=== PATIENT | female | born 1935 | race Caucasian/White ===

== ENCOUNTER 2017-01-08 17:23 | Inpatient (IN) | payer MEDICARE, OTHER ==
[2017-01-08] MEDS ORDERED: Ondansetron HCl/PF 4 MG/2 ML Vial IVP PRN (18:12)
[2017-01-08] MEDS ORDERED: Ondansetron ODT 4 MG TAB PO PRN (18:12)
[2017-01-08] MEDS ORDERED: Bisacodyl 5 MG TAB PO PRN (18:12)
[2017-01-08] MEDS ORDERED: Albuterol Sulfate 2.5 mg/3 ml Neb NEB PRN (18:22)
[2017-01-08] MEDS ORDERED: Digoxin 0.5 MG/2 ML AMP ONE (18:46)
[2017-01-08] MEDS: Sodium Chloride 0.9% 1,000 ML IV SCH (20:00)
[2017-01-08] MEDS ORDERED: Sodium Chloride 0.9% 500 ML IVPB SCH (20:00)
[2017-01-08] MEDS: Docusate 100 MG CAP PO SCH (21:05)
[2017-01-08] MEDS ORDERED: diphenhydrAMINE 25 MG CAP PO SCH (22:00)
[2017-01-08] MEDS ORDERED: Famotidine/PF 20 mg/2ml Vial SLOW IVP SCH (22:00)
--- NOTE | 2017-01-08 23:17 | HP ---
PRIMARY CARE PHYSICIAN: Dr. Escalera in [place]. PRIMARY SUPERVISOR PHOTOCOMPOSITION: Dr. Brian Blanchard. CHIEF COMPLAINT: Cavitary lung lesion with pneumonia. HISTORY OF PRESENT ILLNESS: This is a 81-year-old white female with a known history of COPD/emphysem a, who was admitted to [facility] on 01/05/2017 with left upper lobe pneumonia seen on chest x-ray. The patient reports that she has had COPD problems on and off that she had a problem about a week ago, but it improved. Patient had return of symptoms of coughing, and shortness of breath and w heezing about 7 days ago. Then she developed some fevers. Her fever got up to 100.9 with recurrence of fever. She eventually went to the hospital in [place] 3 days ago, patient was found to be febr ile with elevated white blood cell count of 19,000 and left upper lobe infiltrate, she was put on Alex ephin, azithromycin. Patient continued to have fevers in the hospital with a temperature of 101 arturo ier today, her white blood cell count did trend down from 19,000 on admission to 15,000 earlier today . She also had some hyponatremia 129, which was up to 136 today. Creatinine has been normal. No ot her significant abnormality. She did have a sputum culture and blood cultures drawn and sent over he re. Her sputum culture is growing back Pseudomonas since these are not back yet and her blood cultur es so far are negative. The patient had an episode where she was eating some pudding and had a cough ing fit and vomiting up and she felt very bad after that. She was evaluated at [place] and was fel t that she was possibly getting worse. The patient also had a CT scan done at [place], which show ed a cavitary lesion with fluid in the left upper lung, was concerned for an abscess versus possibly recurrent TB. She does have a history of nodule in the left upper lung lobe site. 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 Blanchard, who has seen her before in the room today. Patient reports feeling a bit better and now she has recovere d from her post-tussive emesis spell and just having some mild shortness of breath and then intermitt ent coughing fits. PAST MEDICAL HISTORY: 1. 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 2. Hypothyroidism. 3. Peripheral neuropathy. 4. Chronic back pain and sees Dr. Ilya Pritchett. 5. Gastroesophageal reflux disease on daily proton pump inhibitor. 6. Glaucoma. 7. Peripheral vascular disease. PAST SURGICAL HISTORY: 1. Tonsillectomy. 2. Bilateral cataract removal. 3. Hysterectomy. 4. Partial colectomy due to obstruction in 2008. 5. Esophageal dilation. 6. Colonoscopy in 2013 with polyps. 7. Back surgery in 2013. FAMILY HISTORY: Her dad may have had lung cancer. The patient is not certain about this specific di sease in her family. SOCIAL HISTORY: Patient lives at home with her in [facility]. She is [id number] smoking h istory, stopped more than 10 years ago. No alcohol or illicit drug use. She has 5 sons, one is dece ased in his 50s. ALLERGIES: 1. SULFAMETHOXAZOLE. 2. CODEINE SULFATE both of these cause vomiting, no anaphylactoid reactions. HOME MEDICATIONS: List as reported by the [facility]: 1. Timolol 0.5% solution one drop into affected eye daily. 2. Diazepam 10 mg twice a day as needed for muscle spasms. 3. Polyethylene glycol 1 scoop twice a day. 4. Levothyroxine 150 mcg daily. 5. DuoNeb 3 times a day. 6. ProAir HFA 2 puffs every 6 hours as needed for dyspnea. 7. Nexium 40 mg daily. 8. Lyrica 75 mg daily. 9. Advair Diskus 250/50 one puff twice a day. REVIEW OF SYSTEMS: Constitutional: Positive for chills and fevers as per HPI. No weight changes. Eyes: No double vision or blurred vision. ENT: She has had some congestion in her sinuses and nose and some mild sore throat since she is dried out with the oxygen in the hospital. Respiratory: Pos itive for cough, increased sputum, but no blood, positive for dyspnea and wheezing. Cardiovascular: No chest pain, no palpitations, or racing heart. Gastrointestinal: No abdominal pain, no diarrhea, or constipation. She had some posttussive emesis. No other nausea or vomiting. Genitourinary: No dysuria or hematuria. Musculoskeletal: No muscle aches or joint pains, except for her chronic low back pain. Skin: No rashes or other lesions that she has noticed. Neurologic: No focal weakness, no tingling. She does have some chronic numbness in her left foot, though she is able to feel things okay with that and chronically cold in her foot. She does bilateral foot burning, which she does no t take her Lyrica. PHYSICAL EXAMINATION: VITAL SIGNS: Blood pressure is just dropped to 83/55 when she fell asleep after my exam before that, recheck is 96/47, pulse 107, respirations 15, O2 sat 97% on nasal cannula oxygen. GENERAL: This is a well-developed, thin elderly white female in no acute distress. HEENT: Pupils are equal, round, and reactive to light. Oropharynx clear without lesions, erythema o r exudate. NECK: Supple, no lymphadenopathy, no thyroid nodules or enlargement, no JVD. HEART: Regular rhythm. She is a little bit tachycardic, no murmurs. LUNGS: She has decreased breath sounds throughout consistent with emphysema. However, she does have some mild dry sounding crackles in her right upper lobe. No increased work of breathing currently. No wheezing. ABDOMEN: Soft, nontender to palpation, normoactive bowel sounds, no hepatosplenomegaly or other mass es. EXTREMITIES: No clubbing, cyanosis, or edema. She does have fairly cold feet, but with good pulses and intact sensation. SKIN: No lesions. No rashes or other lesions noted. NEUROLOGIC: Cranial nerves intact and equal bilaterally. No facial droop. Strength 5/5 in all 4 ex tremities. PSYCHIATRIC: Alert and oriented x3, normal mood and affect. LABORATORY DATA: Today sodium 136, potassium 3.7, chloride 98, bicarbonate 32, BUN 14, creatinine 0. 6, glucose 101. Lactic acid was 1.7. White blood cell count 15,000, hemoglobin 11.5 down from 13 on admission, hematocrit 34.5, platelet count 277, neutrophils 87%. ASSESSMENT: 1. Community-acquired pneumonia now growing pseudomonas, possibly aspiration in origin. We will exp and patient's antibiotic coverage. She had a dose of Zosyn before transfer per Dr. Blanchard's request . We will continue Zosyn 4.5 mg q.6 hours IV and Levaquin as well 750 mg IV daily. Patient is curre ntly on respiratory isolation. We will try and get a sputum for acid-fast bacilli. Dr. Blanchard will be consulted in the morning. 2. Leukocytosis, improving, given continued fever, we will expand antibiotic. 3. COPD/emphysema. We will give nebs q.6 hours and then albuterol nebs every q.4 hours p.r.n. 4. Gastrointestinal prophylaxis with patient's GERD. We will put her Protonix 40 mg daily. 5. Deep venous thrombosis prophylaxis. We will put the patient on sequential compression devices an d ALEYDA along with Lovenox. 6. Anemia, likely dilutional with IV fluids in the hospital. We will recheck in the morning and isabella e sure it is not dropping any further. She may need a stool guaiacs and investigation resource. 7. Hypothyroidism. Resume home medication. 8. Code status. I did discuss with the patient. She is FULL CODE. She should be incapacitated. S he states that her would be her medical decision maker. His name is Peter Judge.
[2017-01-08] MEDS: Piperacillin/Tazobactam 4.5 GM in Sodium Chloride 0.9% 100 ML IVPB SCH (23:40)
[2017-01-09] MEDS: Acetaminophen 325 MG TAB PO PRN ×3 (00:15→16:40)
[2017-01-09] MEDS: Sodium Chloride 0.9% 1,000 ML IV SCH (00:24)
[2017-01-09 04:49] LABS: Anion Gap 12 mmol/L (10-20); BUN (Urea Nitrogen) 9 mg/dL (9.8-20.1); Calc. Creatinine Clearance 53 mL/min (70-130); Calcium 8.3 mg/dL (7.8-10.44); Carbon Dioxide 25 mmol/L (23-31); Chloride 100 mmol/L (98-107); Estimated GFR-MDRD Greater than 90
[2017-01-09] MEDS: Cyclobenzaprine 10 MG TAB PO PRN (05:40)
[2017-01-09] MEDS: Piperacillin/Tazobactam 4.5 GM in Sodium Chloride 0.9% 100 ML IVPB SCH ×4 (05:55→23:40)
[2017-01-09 06:06] LABS: Band 19 % (5-11); Mean Platelet Volume 7.2 fL (7.4-10.4); Metamyelocyte 3 % (0-0); Neutrophil 72 % (42-75); Red Blood Cell (RBC) Count 3.78 mill/uL (4.20-5.40); White Blood Cell (WBC) Count 21.3 thou/uL (4.8-10.8)
[2017-01-09] MEDS: Docusate 100 MG CAP PO SCH ×2 (09:00→20:39)
[2017-01-09] MEDS: Enoxaparin Sodium 40 MG/0.4 ML SYRINGE SC SCH (09:03)
[2017-01-09] MEDS ORDERED: Azithromycin 250 MG TAB PO SCH (11:00)
[2017-01-09] MEDS ORDERED: Pregabalin 75 MG CAP PO SCH (11:30)
--- NOTE | 2017-01-09 12:44 | PDOC.PN ---
- Subjective Encounter Start Date: 01/09/17 Encounter Start Time: 12:30 Subjective: Patient with some back spasm, now improved with home meds. -: Cough and SOB stable. No fever here. - Objective Resuscitation Status: Resuscitation Status FULL:Full Resuscitation MAR Reviewed: Yes Vital Signs & Weight: Vital Signs (12 hours) Temp Pulse Resp Pulse Ox 01/09/17 08:00 96.4 F L 105 H 23 H 95 01/09/17 07:58 100 01/09/17 07:55 106 H 24 H 100 01/09/17 04:00 97.8 F Weight Admit Weight 98 lb 8.746 oz Weight 97 lb 3.582 oz Most Recent Monitor Data Heart Rate from ECG 106 NIBP 152/83 NIBP BP-Mean 111 Respiration from ECG 21 SpO2 98 I&O: 01/08/17 01/09/17 01/10/17 06:59 06:59 06:59 Intake Total 2420 Output Total 2175 630 Balance 245 -630 Result Diagrams: 01/09/17 04:17 01/09/17 04:18 Phys Exam - Physical Examination Constitutional: NAD HEENT: moist MMs bilateral dry crackles and some mild wheezing Cardiovascular: RRR, no significant murmur Gastrointestinal: soft, positive bowel sounds Musculoskeletal: no edema Neurological: non-focal, moves all 4 limbs Psychiatric: normal affect, A&O x 3 Dx/Plan (1) Pneumonia with cavity of lung Code(s): J18.9 - PNEUMONIA, UNSPECIFIED ORGANISM; J98.4 - OTHER DISORDERS OF LUNG Status: Acute Comment: Pneumonia with Bullitis, Sptutum culture from with pansensitive Pseudomonas (2) COPD exacerbation Code(s): J44.1 - CHRONIC OBSTRUCTIVE PULMONARY DISEASE W (ACUTE) EXACERBATION Status: Acute (3) Hypothyroidism Code(s): E03.9 - HYPOTHYROIDISM, UNSPECIFIED Status: Chronic (4) Anemia Code(s): D64.9 - ANEMIA, UNSPECIFIED Status: Chronic - Plan cont current plan of care, continue antibiotics will need food and nutrition teacher abx and 6 week f/u with Dr. Blanchard after D/C. * . - Discharge Day Encounter end time: 12:55
--- NOTE | 2017-01-09 13:06 | CON ---
DATE OF CONSULTATION: 01/09/2017 SERVICE: Pulmonary Medicine. HISTORY OF PRESENT ILLNESS: The patient is a 81-year-old white female with past medical history sign ificant for a 7-day history of increasing difficulty breathing, cough, sputum production and fever. She presented to the Emergency Department in [place]. A chest x-ray showed a left upper lobe infil trate. CT scan was concerning for cavitary lesion. That being said, she has known horrendous emphys ematous lung changes. This is worse in the apical region. It is more likely that she just simply psoey s bullitis. It is unlikely that she is having multifocal air fluid levels consistent with multiple c avities. We did have a CT of the chest that was done roughly a year ago. This demonstrated the severe emphyse matous changes. Either way, she was put in the hospital and appropriately treated with [facility] coverage. She does feel better since being here. She has generating significant amounts of sp utum. PAST MEDICAL HISTORY: 1. Chronic obstructive pulmonary disease, severe. 2. Chronic hypoxic respiratory failure. 3. Chronic back pain. 4. Peripheral neuropathy. 5. Hypothyroidism. 6. Gastroesophageal reflux disease. 7. Glaucoma. 8. Peripheral vascular disease. PAST SURGICAL HISTORY: 1. Bilateral cataract extraction. 2. Tonsillectomy. 3. Hysterectomy. 4. Partial colectomy secondary to obstruction in 2008. 5. Esophageal dilation. 6. Polypectomy of the colon in 2012. 7. Back surgery in 2012. 8. Multiple injections for back pains. FAMILY HISTORY: Noncontributory. SOCIAL HISTORY: She has an [id number] history of smoking, but quit over 10 years ago. She denies any alcohol or illicit drug use. She has no exposure to chemicals, dust, asbestos or tuberculosis. ALLERGIES: SULFAMETHOXAZOLE and CODEINE. MEDICATIONS: List for her inpatient medications were reviewed. Multiple updates were made at this t formerly [facility]. REVIEW OF SYSTEMS: General, head, ears, eyes, nose, throat, cardiovascular, respiratory, GI, , mus culoskeletal, neurologic and skin is negative except as mentioned in the HPI. PHYSICAL EXAMINATION: VITAL SIGNS: Currently afebrile. Pulse 108, blood pressure 151/77, respirations 27, saturation 100% on 2 liters nasal cannula. HEENT: Normocephalic and atraumatic. Sclerae are white, conjunctivae pink. Oral and nasal mucosa i s moist without lesions. LUNGS: Decreased air entry. There is a prolonged expiratory phase. Rhonchi are present. Expirator y wheezing is also present. I do not appreciate any crackles. HEART: Normal rate and regular. ABDOMEN: Soft, nontender and nondistended. Bowel sounds positive. MUSCULOSKELETAL: No cyanosis or clubbing. No pitting in the bilateral lower extremities. NEUROLOGIC: Grossly nonfocal. LABORATORY DATA: WBC 21.3, hemoglobin 11.9, platelets 275,000 and band count is 19%. Basic metaboli c profile is completely unremarkable. IMAGING DATA: CT of the chest from the outside hospital was reviewed. There is a dense infiltrate i n the left upper lobe. This is superimposed on bolus emphysema. Additionally, she has some posterio rly located infiltrate, which is layering in the left posterior base. ASSESSMENT: 1. Chronic obstructive pulmonary disease with acute exacerbation. 2. Acute on chronic hypoxic respiratory failure. 3. Community-acquired pneumonia, severe. 4. Bullitis. DISCUSSION AND PLAN: There is no cavitary lesion here. If there was, it would be a unilateral multi focal cavitary disease. She has got multiple air fluid levels, but this is likely an overt consolida tion superimposed on top of bullous emphysema. This is essentially bullitis. It does need to be shayy ated with a protracted course of antibiotics. There is certainly no indication for biopsy or broncho scopy at this time. She has been placed on respiratory isolation. An acid-fast bacilli is currently cooking. If one sample is normal, I will discontinue the respiratory isolation. I will add atypica l coverage. Steroids will be deescalated to p.o. medication and limited to a 7-day course. Pulmonar y Critical Care will continue to follow, but from my perspective, she is stable for transition to the medical unit.
[2017-01-09] MEDS: guaiFENesin ER 600 MG TAB PO SCH (20:39)
[2017-01-09] MEDS: Pregabalin 75 MG CAP PO SCH (20:40)
[2017-01-10] MEDS: Acetaminophen 325 MG TAB PO PRN ×4 (02:50→21:17)
[2017-01-10] MEDS: Cyclobenzaprine 10 MG TAB PO PRN ×2 (02:51→15:33)
[2017-01-10 05:19] LABS: Band 7 % (5-11); Mean Platelet Volume 6.7 fL (7.4-10.4); Neutrophil 86 % (42-75); Red Blood Cell (RBC) Count 3.35 mill/uL (4.20-5.40); White Blood Cell (WBC) Count 21.5 thou/uL (4.8-10.8)
[2017-01-10] MEDS: Levothyroxine Sodium 150 MCG TAB PO SCH (05:28)
[2017-01-10] MEDS: Piperacillin/Tazobactam 4.5 GM in Sodium Chloride 0.9% 100 ML IVPB SCH ×3 (05:28→17:12)
[2017-01-10] MEDS: Docusate 100 MG CAP PO SCH ×2 (07:55→20:16)
[2017-01-10] MEDS: Pregabalin 75 MG CAP PO SCH ×2 (07:55→20:16)
[2017-01-10] MEDS: guaiFENesin ER 600 MG TAB PO SCH ×2 (07:55→20:16)
[2017-01-10] MEDS: predniSONE 20 MG TAB PO SCH (07:56)
[2017-01-10] MEDS: Enoxaparin Sodium 40 MG/0.4 ML SYRINGE SC SCH (07:56)
[2017-01-10] MEDS ORDERED: Azithromycin 250 MG TAB PO SCH (09:00)
[2017-01-10] MEDS: Timolol 0.5% Ophth Soln 5 ml Bottle EA EYE SCH (09:50)
[2017-01-10] MEDS ORDERED: Heparin 1,000 UNITS/ML VIAL ONE (10:00)
--- NOTE | 2017-01-10 13:03 | PDOC.PN ---
- Subjective Encounter Start Date: 01/10/17 Encounter Start Time: 11:25 Patient seen and examined. No new complaints. No overnight events - Objective Resuscitation Status: Resuscitation Status FULL:Full Resuscitation MAR Reviewed: Yes Vital Signs & Weight: Vital Signs (12 hours) Temp Pulse Resp BP Pulse Ox 01/10/17 13:00 106 H 01/10/17 11:33 97.6 F 78 18 146/79 H 01/10/17 09:50 96 01/10/17 08:00 97.9 F 96 18 01/10/17 07:27 97.9 F 96 18 145/82 H 100 01/10/17 07:23 100 18 01/10/17 04:00 97.5 F L 94 20 142/75 H 97 01/10/17 02:42 98 01/10/17 01:13 99 18 95 Weight Admit Weight 98 lb 8.746 oz Weight 97 lb 3.582 oz Most Recent Monitor Data Heart Rate from ECG 96 NIBP 149/81 NIBP BP-Mean 110 Respiration from ECG 24 SpO2 100 I&O: 01/09/17 01/10/17 01/11/17 06:59 06:59 06:59 Intake Total 2420 860 Output Total 2175 1800 Balance 245 -940 Result Diagrams: 01/10/17 04:29 01/09/17 04:18 Radiology Reviewed by me: Yes Phys Exam - Physical Examination Constitutional: NAD HEENT: PERRLA, moist MMs, sclera anicteric Neck: no JVD, supple Respiratory: no wheezing, no rales, no rhonchi Cardiovascular: RRR, no significant murmur, no rub Gastrointestinal: soft, non-tender, no distention, positive bowel sounds Musculoskeletal: no edema, pulses present Neurological: non-focal, normal sensation Lymphatic: no nodes Psychiatric: normal affect, A&O x 3 Skin: no rash, normal turgor Dx/Plan (1) Acute on chronic respiratory failure with hypoxia Code(s): J96.21 - ACUTE AND CHRONIC RESPIRATORY FAILURE WITH HYPOXIA Status: Acute (2) COPD exacerbation Code(s): J44.1 - CHRONIC OBSTRUCTIVE PULMONARY DISEASE W (ACUTE) EXACERBATION Status: Acute (3) Community acquired bacterial pneumonia Code(s): J15.9 - UNSPECIFIED BACTERIAL PNEUMONIA Status: Acute (4) Sepsis with acute organ dysfunction Code(s): A41.9 - SEPSIS, UNSPECIFIED ORGANISM; R65.20 - SEVERE SEPSIS WITHOUT SEPTIC SHOCK Status: Acute (5) Anemia, normocytic normochromic Code(s): D64.9 - ANEMIA, UNSPECIFIED Status: Chronic (6) GERD (gastroesophageal reflux disease) Code(s): K21.9 - GASTRO-ESOPHAGEAL REFLUX DISEASE WITHOUT ESOPHAGITIS Status: Chronic (7) Glaucoma Code(s): H40.9 - UNSPECIFIED GLAUCOMA Status: Chronic (8) Hypothyroidism Code(s): E03.9 - HYPOTHYROIDISM, UNSPECIFIED Status: Chronic (9) PVD (peripheral vascular disease) Code(s): I73.9 - PERIPHERAL VASCULAR DISEASE, UNSPECIFIED Status: Chronic (10) Peripheral neuropathy Code(s): G62.9 - POLYNEUROPATHY, UNSPECIFIED Status: Chronic (11) Protein-calorie malnutrition, moderate Code(s): E44.0 - MODERATE PROTEIN-CALORIE MALNUTRITION Status: Chronic - Plan cont current plan of care, continue antibiotics, respiratory therapy * continue zosyn and azithromycin * will ask pulmonary to decide IV vs oral antibiotics on discharge and duration * continue current optimum medical therapy for copd * medication reviewed as below * symptomatic treatment * once sputum afb negative, will dc respiratory isolation. Review of Systems - Review of Systems Constitutional: Weakness, Malaise. negative: Fever, Chills, Sweats, Other Eyes: negative: Pain, Vision Change, Conjunctivae Inflammation, Eyelid Inflammation, Redness, Other ENT: negative: Ear Pain, Ear Discharge, Nose Pain, Nose Discharge, Nose Congestion, Mouth Pain, Mouth Swelling, Throat Pain, Throat Swelling, Other Respiratory: Cough, Shortness of Breath, SOB with Excertion. negative: Dry, Hemoptysis, Pleuritic Pain, Sputum, Wheezing Cardiovascular: negative: Chest Pain, Palpitations, Orthopnea, Paroxysmal Noc. Dyspnea, Edema, Light Headedness, Other Gastrointestinal: negative: Nausea, Vomiting, Abdominal Pain, Diarrhea, Constipation, Melena, Hematochezia, Other Genitourinary: negative: Dysuria, Frequency, Incontinence, Hematuria, Retention , Other Musculoskeletal: negative: Neck Pain, Shoulder Pain, Arm Pain, Back Pain, Hand Pain, Leg Pain, Foot Pain, Other Skin: negative: Rash, Lesions, Yury, Bruising, Other - Medications/Allergies Allergies/Adverse Reactions: Allergies Allergy/AdvReac Type Severity Reaction Status Date / Time Sulfa (Sulfonamide Allergy Severe Rash Verified 01/09/17 01:23 Antibiotics) codeine Allergy Verified 09/23/15 07:14 levofloxacin [From Levaquin] Allergy Verified 01/08/17 23:42 Medications: Current Medications Acetaminophen (Tylenol) 650 mg PO Q4H PRN PRN Reason: Headache/Fever or Pain Last Admin: 01/10/17 07:55 Dose: 650 mg Albuterol Sulfate (Ventolin) 2.5 mg NEB [id number] PRN PRN Reason: Wheezing Albuterol/Ipratropium (Duoneb) 3 ml NEB [id number] [facility] Last Admin: 01/10/17 13:00 Dose: 3 ml Azithromycin (Zithromax) 500 mg PO DAILY [facility] Stop: 01/15/17 09:01 Last Admin: 01/10/17 07:56 Dose: 500 mg Bisacodyl (Dulcolax) 10 mg PO DAILYPRN PRN PRN Reason: Constipation Cyclobenzaprine HCl (Flexeril) 5 mg PO Q8H PRN PRN Reason: Muscle Spasm Last Admin: 01/10/17 02:51 Dose: 5 mg Diazepam (Valium) 5 mg PO Q24H PRN PRN Reason: Anxiety Docusate Sodium (Colace) 100 mg PO BID [facility] Last Admin: 01/10/17 07:55 Dose: 100 mg Enoxaparin Sodium (Lovenox) 40 mg SC 0900 [facility] Last Admin: 01/10/17 07:56 Dose: 40 mg Guaifenesin (Mucinex) 1,200 mg PO Q12HR [facility] Last Admin: 01/10/17 07:55 Dose: 1,200 mg Piperacillin Sod/Tazobactam (Sod 4.5 gm/ Sodium Chloride) 100 mls @ 200 mls/hr IVPB Q6HR [facility] Last Admin: 01/10/17 11:03 Dose: 100 mls Sodium Chloride (Normal Saline 0.9%) 1,000 mls @ 0 mls/hr IV .Q0M [facility] PRN Reason: KVO Levothyroxine Sodium (Synthroid) 150 mcg PO 0600 [facility] Last Admin: 01/10/17 05:28 Dose: 150 mcg Ondansetron HCl (Zofran Odt) 4 mg PO Q6H PRN PRN Reason: Nausea/Vomiting Ondansetron HCl (Zofran) 4 mg IVP Q6H PRN PRN Reason: Nausea/Vomiting Pantoprazole Sodium (Protonix) 40 mg PO DAILY [facility] Last Admin: 01/10/17 07:56 Dose: 40 mg Prednisone (Prednisone) 40 mg PO QAM-WM [facility] Last Admin: 01/10/17 07:56 Dose: 40 mg Pregabalin (Lyrica) 75 mg PO BID [facility] Last Admin: 01/10/17 07:55 Dose: 75 mg Sodium Chloride (Flush - Normal Saline) 10 ml IVF Q12HR [facility] Last Admin: 01/10/17 08:03 Dose: 10 ml Sodium Chloride (Flush - Normal Saline) 10 ml IVF PRN PRN PRN Reason: Saline Flush Last Admin: 01/08/17 23:40 Dose: 10 ml Timolol Maleate (Timoptic 0.5% Oph Soln) 1 drop EA EYE DAILY [facility] Last Admin: 01/10/17 09:50 Dose: 1 drp
[2017-01-10 13:15] VITALS: BMI 16.7
--- NOTE | 2017-01-10 18:08 | PRG ---
DATE OF SERVICE: 01/10/2017 SERVICE: Pulmonary Medicine. INTERVAL HISTORY: The patient actually feels like she is breathing much better. She is starting to cough up some of the sputum. It is a thick and yellow sputum. She denies any current fevers or chil ls. She is having some little overnight night sweats. Otherwise, she is returning to her usual stat e of health. PHYSICAL EXAMINATION: VITAL SIGNS: Afebrile, pulse 78, blood pressure 146/79, respirations 18, saturation 97% on 2 liters nasal cannula. GENERAL: The patient is awake and alert, in no apparent distress. LUNGS: Decent air entry. Rhonchi on the right. There is prolonged expiratory phase. A little bit of expiratory wheezing is present, but there are no crackles clear. HEART: Normal rate, regular. ABDOMEN: Soft, nontender, nondistended, bowel sounds positive. MUSCULOSKELETAL: No cyanosis or clubbing. No pitting in the bilateral lower extremities. NEUROLOGIC: Grossly nonfocal. LABORATORY DATA: WBC 21.5, hemoglobin 10.6, platelets 336,000. Band count is dropping. Basic metab olic profile remains unremarkable. Sputum culture growing Pseudomonas aeruginosa. This is a pansens itive organism. AFB smear and culture are negative to date. ASSESSMENT: 1. Acute on chronic hypoxic respiratory failure, resolved, at baseline. 2. Chronic obstructive pulmonary disease with acute exacerbation. 3. Community-acquired pneumonia, severe. 4. Bullitis. DISCUSSION AND PLAN: The patient seems to be doing much better. If she makes a significant recovery in 24 hours and and her white count starts to drop off, she can be considered for transition out of the hospital on p.o. Levaquin. Unfortunately, this will need to be continued for a total duration o f at least 4 weeks. Repeat imaging in the outpatient setting in 4 weeks with preclinic chest x-ray. We will need to continue antibiotics until she radiographically clear as this is not symptom of pneu monia and likely represents multifocal bullitis. Steroids can be discontinued after 10 days. Freque nt nebulizer medications directed at her underlying COPD process will be continued. Pulmonary will c ontinue to follow while she remains in house, but my suspicion is she will be discharged in 1-2 days.
[2017-01-11] MEDS: Piperacillin/Tazobactam 4.5 GM in Sodium Chloride 0.9% 100 ML IVPB SCH ×5 (00:03→23:11)
[2017-01-11] MEDS: Cyclobenzaprine 10 MG TAB PO PRN ×3 (01:54→20:20)
[2017-01-11] MEDS: Acetaminophen 325 MG TAB PO PRN ×2 (01:55→06:03)
[2017-01-11 05:57] LABS: Band 12 % (5-11); Hematocrit 36.3 % (36.0-47.0); Mean Platelet Volume 7.2 fL (7.4-10.4); Myelocyte 1 % (0-0); Neutrophil 84 % (42-75); Red Blood Cell (RBC) Count 3.75 mill/uL (4.20-5.40); White Blood Cell (WBC) Count 23.6 thou/uL (4.8-10.8)
[2017-01-11] MEDS: Levothyroxine Sodium 150 MCG TAB PO SCH (06:03)
[2017-01-11] MEDS: guaiFENesin ER 600 MG TAB PO SCH ×2 (09:02→20:18)
[2017-01-11] MEDS: Diazepam 5 MG TAB PO PRN (09:02)
[2017-01-11] MEDS: Docusate 100 MG CAP PO SCH ×2 (09:03→20:17)
[2017-01-11] MEDS: predniSONE 20 MG TAB PO SCH (09:03)
[2017-01-11] MEDS: Pregabalin 75 MG CAP PO SCH ×2 (09:04→20:18)
[2017-01-11] MEDS: Enoxaparin Sodium 40 MG/0.4 ML SYRINGE SC SCH (09:05)
[2017-01-11] MEDS: Timolol 0.5% Ophth Soln 5 ml Bottle EA EYE SCH (09:05)
[2017-01-11] MEDS ORDERED: Loperamide HCl 2 MG CAP PO PRN (09:30)
[2017-01-11] MEDS ORDERED: Milk Of Magnesia 30 ML UDCUP PO PRN (09:30)
[2017-01-11] MEDS ORDERED: Diabetic Tussin 200 MG/10 ML UDCUP PO PRN (09:30)
[2017-01-11] MEDS ORDERED: Chloraseptic Spray 180 ml Bottle PO PRN (09:30)
[2017-01-11] MEDS ORDERED: Loratadine 10 MG TAB PO PRN (09:30)
[2017-01-11] MEDS ORDERED: Eucerin (Mineral Oil/Petrolatum,White) 30 gm Jar TOP PRN (09:30)
[2017-01-11] MEDS ORDERED: Temazepam 15 MG CAP PO PRN (09:30)
[2017-01-11] MEDS ORDERED: hydrALAZINE 20 MG/ML VIAL SLOW IVP PRN (09:30)
[2017-01-11] MEDS ORDERED: Artificial Tear Sol 15 ML BOT EA EYE PRN (09:30)
[2017-01-11] MEDS ORDERED: Sodium Chloride 0.65% Nasal 44 ML BOT EA NARE PRN (09:30)
[2017-01-11] MEDS ORDERED: Benzonatate 100 MG CAP PO PRN (09:30)
[2017-01-11] MEDS ORDERED: Mag-Al 1200 mg/1200 mg/30 ML UDCUP PO PRN (09:30)
[2017-01-11] MEDS: Sodium Chloride 0.9% 1,000 ML IV SCH (09:32)
--- NOTE | 2017-01-11 12:06 | PDOC.PN ---
- Subjective Encounter Start Date: 01/11/17 Encounter Start Time: 10:20 today she is not doing well, feels weak, has cough, no chest pain, no dyspnea - Objective Resuscitation Status: Resuscitation Status FULL:Full Resuscitation MAR Reviewed: Yes Vital Signs & Weight: Vital Signs (12 hours) Temp Pulse Resp BP BP Pulse Ox 01/11/17 09:05 105 H 149/62 H 01/11/17 08:00 97.7 F 105 H 24 H 149/63 H 97 01/11/17 07:12 93 18 93 L 01/11/17 01:40 96 16 96 Weight Admit Weight 98 lb 8 oz Weight 97 lb 3.568 oz Most Recent Monitor Data Heart Rate from ECG 96 NIBP 149/81 NIBP BP-Mean 110 Respiration from ECG 24 SpO2 100 I&O: 01/10/17 01/11/17 01/12/17 06:59 06:59 06:59 Intake Total 860 902 Output Total 1800 1800 Balance -940 -898 Result Diagrams: 01/11/17 04:43 01/09/17 04:18 Phys Exam - Physical Examination Constitutional: NAD HEENT: PERRLA, moist MMs, sclera anicteric Neck: no JVD, supple coarse sound Cardiovascular: RRR, no significant murmur, no rub Gastrointestinal: soft, non-tender, no distention, positive bowel sounds Musculoskeletal: no edema, pulses present Neurological: non-focal, normal sensation Lymphatic: no nodes Psychiatric: normal affect, A&O x 3 Skin: no rash, normal turgor Dx/Plan (1) Acute on chronic respiratory failure with hypoxia Code(s): J96.21 - ACUTE AND CHRONIC RESPIRATORY FAILURE WITH HYPOXIA Status: Acute (2) COPD exacerbation Code(s): J44.1 - CHRONIC OBSTRUCTIVE PULMONARY DISEASE W (ACUTE) EXACERBATION Status: Acute (3) Community acquired bacterial pneumonia Code(s): J15.9 - UNSPECIFIED BACTERIAL PNEUMONIA Status: Acute (4) Sepsis with acute organ dysfunction Code(s): A41.9 - SEPSIS, UNSPECIFIED ORGANISM; R65.20 - SEVERE SEPSIS WITHOUT SEPTIC SHOCK Status: Acute (5) Anemia, normocytic normochromic Code(s): D64.9 - ANEMIA, UNSPECIFIED Status: Chronic (6) GERD (gastroesophageal reflux disease) Code(s): K21.9 - GASTRO-ESOPHAGEAL REFLUX DISEASE WITHOUT ESOPHAGITIS Status: Chronic (7) Glaucoma Code(s): H40.9 - UNSPECIFIED GLAUCOMA Status: Chronic (8) Hypothyroidism Code(s): E03.9 - HYPOTHYROIDISM, UNSPECIFIED Status: Chronic (9) PVD (peripheral vascular disease) Code(s): I73.9 - PERIPHERAL VASCULAR DISEASE, UNSPECIFIED Status: Chronic (10) Peripheral neuropathy Code(s): G62.9 - POLYNEUROPATHY, UNSPECIFIED Status: Chronic (11) Protein-calorie malnutrition, moderate Code(s): E44.0 - MODERATE PROTEIN-CALORIE MALNUTRITION Status: Chronic - Plan cont current plan of care, continue antibiotics, respiratory therapy * continue zosyn and azithromycin * will follow culture * medication reviewed as below * symptomatic treatment * repeat labs tomorrow. Review of Systems - Review of Systems Constitutional: Weakness. negative: Fever, Chills, Sweats, Malaise, Other ENT: negative: Ear Pain, Ear Discharge, Nose Pain, Nose Discharge, Nose Congestion, Mouth Pain, Mouth Swelling, Throat Pain, Throat Swelling, Other Respiratory: Cough, Shortness of Breath. negative: Dry, Hemoptysis, SOB with Excertion, Pleuritic Pain, Sputum, Wheezing Cardiovascular: negative: Chest Pain, Palpitations, Orthopnea, Paroxysmal Noc. Dyspnea, Edema, Light Headedness, Other Gastrointestinal: negative: Nausea, Vomiting, Abdominal Pain, Diarrhea, Constipation, Melena, Hematochezia, Other Genitourinary: negative: Dysuria, Frequency, Incontinence, Hematuria, Retention , Other Musculoskeletal: negative: Neck Pain, Shoulder Pain, Arm Pain, Back Pain, Hand Pain, Leg Pain, Foot Pain, Other Skin: negative: Rash, Lesions, Yury, Bruising, Other - Medications/Allergies Allergies/Adverse Reactions: Allergies Allergy/AdvReac Type Severity Reaction Status Date / Time Sulfa (Sulfonamide Allergy Severe Rash Verified 01/09/17 01:23 Antibiotics) codeine Allergy Verified 09/23/15 07:14 levofloxacin [From Levaquin] Allergy Verified 01/08/17 23:42 Medications: Current Medications Acetaminophen (Tylenol) 650 mg PO Q4H PRN PRN Reason: Headache/Fever or Pain Last Admin: 01/11/17 06:03 Dose: 650 mg Al Hydroxide/Mg Hydroxide (Maalox) 15 ml PO Q4H PRN PRN Reason: Heartburn or Indigestion Albuterol Sulfate (Ventolin) 2.5 mg NEB [id number] PRN PRN Reason: Wheezing Albuterol/Ipratropium (Duoneb) 3 ml NEB [id number] [facility] Last Admin: 01/11/17 07:12 Dose: 3 ml Artificial Tears (Tears Renewed 15ml Bottle) 0 drop EA EYE PRN PRN PRN Reason: Dry Eyes Benzonatate (Tessalon) 100 mg PO Q4H PRN PRN Reason: Cough Bisacodyl (Dulcolax) 10 mg PO DAILYPRN PRN PRN Reason: Constipation Last Admin: 01/10/17 20:16 Dose: 10 mg Cyclobenzaprine HCl (Flexeril) 5 mg PO Q8H PRN PRN Reason: Muscle Spasm Last Admin: 01/11/17 09:04 Dose: 5 mg Diazepam (Valium) 5 mg PO Q24H PRN PRN Reason: Anxiety Last Admin: 01/11/17 09:02 Dose: 5 mg Docusate Sodium (Colace) 100 mg PO BID [facility] Last Admin: 01/11/17 09:03 Dose: 100 mg Enoxaparin Sodium (Lovenox) 30 mg SC 0900 [facility] Famotidine (Pepcid) 20 mg PO BID [facility] Guaifenesin (Mucinex) 1,200 mg PO Q12HR [facility] Last Admin: 01/11/17 09:02 Dose: 1,200 mg Guaifenesin (Robitussin Sf) 200 mg PO Q4H PRN PRN Reason: Cough Hydralazine HCl (Apresoline) 10 mg SLOW IVP Q4H PRN PRN Reason: Systolic BP > 180 Piperacillin Sod/Tazobactam (Sod 4.5 gm/ Sodium Chloride) 100 mls @ 200 mls/hr IVPB Q6HR [facility] Last Admin: 01/11/17 06:01 Dose: 100 mls Sodium Chloride (Normal Saline 0.9%) 1,000 mls @ 0 mls/hr IV .Q0M [facility] PRN Reason: KVO Last Admin: 01/11/17 09:32 Dose: 1,000 mls Levothyroxine Sodium (Synthroid) 150 mcg PO 0600 [facility] Last Admin: 01/11/17 06:03 Dose: 150 mcg Loperamide HCl (Imodium) 2 mg PO PRN PRN PRN Reason: Diarrhea/Loose Stools Loratadine (Claritin) 10 mg PO DAILYPRN PRN PRN Reason: Sinus Symptoms Magnesium Hydroxide (Milk Of Magnesium) 30 ml PO DAILYPRN PRN PRN Reason: Constipation Mineral Oil/White Petrolatum (Eucerin Cream) 0 gm TOP BIDPRN PRN PRN Reason: Dry Skin Ondansetron HCl (Zofran Odt) 4 mg PO Q6H PRN PRN Reason: Nausea/Vomiting Ondansetron HCl (Zofran) 4 mg IVP Q6H PRN PRN Reason: Nausea/Vomiting Pantoprazole Sodium (Protonix) 40 mg PO DAILY [facility] Last Admin: 01/11/17 09:04 Dose: 40 mg Phenol (Chloraseptic [place] 180 Ml Bot) 0 ml PO PRN PRN PRN Reason: Sore Throat Prednisone (Prednisone) 40 mg PO QA-[facility] Last Admin: 01/11/17 09:03 Dose: 40 mg Pregabalin (Lyrica) 75 mg PO BID [facility] Last Admin: 01/11/17 09:04 Dose: 75 mg Saccharomyces Boulardii (Florastor) 250 mg PO DAILY [facility] Sodium Chloride (Flush - Normal Saline) 10 ml IVF Q12HR [facility] Last Admin: 01/11/17 09:05 Dose: 10 ml Sodium Chloride (Flush - Normal Saline) 10 ml IVF PRN PRN PRN Reason: Saline Flush Last Admin: 01/08/17 23:40 Dose: 10 ml Sodium Chloride ([place] Nasal [place] 0.65%) 0 ml EA NARE QIDPRN PRN PRN Reason: Nasal Congestion Temazepam (Restoril) 15 mg PO HSPRN PRN PRN Reason: Insomnia Timolol Maleate (Timoptic 0.5% Oph Soln) 1 drop EA EYE DAILY [facility] Last Admin: 01/11/17 09:05 Dose: 1 drp
--- NOTE | 2017-01-11 14:29 | PRG ---
DATE OF SERVICE: 01/11/2017 SUBJECTIVE: Ms. Judge says she feels about the same as yesterday, it took about 10 minutes to get this history out of her. Her seems very frustrated that she is not getting better quicker. OBJECTIVE: VITAL SIGNS: She is afebrile, heart rate is 93 to 105, blood pressure 149/62. Oximetry is 97 on 3 liters. GENERAL: She gets quite short of breath she says when she ambulates to the bathroom. LUNGS: Remarkable for bilateral faint wheezes. HEART: Regular rhythm. ABDOMEN: Soft. LABORATORY DATA: White count 23.6, hemoglobin 11.7, platelets 386. She has 12 % bands on her peripheral smear. There were no electrolytes today. IMAGING: Chest radiograph was not done here, there is no imaging in the system here, so I will radiograph in the morning. By report, she has an upper lobe air fluid level in a cavity, it is the preexisting bullous airspace. IMPRESSION: 1. Pneumonia. 2. Chronic obstructive pulmonary disease. 3. Deconditioning. She has isolated Pseudomonas from her sputum. Sensitivities are pending. AFB smears are negative. She is on high dose Zosyn, she has got a QUINOLONE allergy, we will continue to follow her and order radiograph in the morning. I have explained to her that deconditioning is the biggest issue at hand and she has to try to be a little more active each day. I have also explained that she will not recover from this quickly. We will await for sensitivities of Pseudomonas. I do not feel that she is getting worse clinically. MAURIZIO
[2017-01-11] MEDS: Famotidine 20 MG TAB PO SCH (20:17)
[2017-01-12] MEDS: Acetaminophen 325 MG TAB PO PRN ×3 (00:19→18:14)
[2017-01-12] MEDS: Levothyroxine Sodium 150 MCG TAB PO SCH (05:36)
[2017-01-12] MEDS: Piperacillin/Tazobactam 4.5 GM in Sodium Chloride 0.9% 100 ML IVPB SCH ×2 (05:36→12:23)
[2017-01-12 05:59] LABS: ALT (SGPT) 15 U/L (8-55); AST (SGOT) 18 U/L (5-34); Alkaline Phosphatase 75 U/L (40-150); Anion Gap 6 mmol/L (10-20); BUN (Urea Nitrogen) 12 mg/dL (9.8-20.1); Bilirubin, Total 0.2 mg/dL (0.2-1.2); Calc. Creatinine Clearance 58 mL/min (70-130); Calcium 8.4 mg/dL (7.8-10.44); Carbon Dioxide 34 mmol/L (23-31); Chloride 98 mmol/L (98-107); Estimated GFR-MDRD Greater than 90; Globulin 2.5 g/dL (2.4-3.5); Protein, Total 4.9 g/dL (6.0-8.3)
[2017-01-12 06:13] LABS: Band 2 % (5-11); Hematocrit 36.3 % (36.0-47.0); Mean Platelet Volume 6.9 fL (7.4-10.4); Neutrophil 93 % (42-75); Red Blood Cell (RBC) Count 3.66 mill/uL (4.20-5.40); White Blood Cell (WBC) Count 15.8 thou/uL (4.8-10.8)
[2017-01-12] MEDS ORDERED: Potassium Chloride 20 MEQ TAB PO SCH (08:15)
[2017-01-12] MEDS: Docusate 100 MG CAP PO SCH ×2 (09:18→20:19)
[2017-01-12] MEDS: guaiFENesin ER 600 MG TAB PO SCH ×2 (09:18→20:18)
[2017-01-12] MEDS: Saccharomyces boulardii 250 MG CAP PO SCH (09:18)
[2017-01-12] MEDS: predniSONE 20 MG TAB PO SCH (09:18)
[2017-01-12] MEDS: Famotidine 20 MG TAB PO SCH ×2 (09:19→20:19)
[2017-01-12] MEDS: Enoxaparin Sodium 30 MG/0.3 ML SYRINGE SC SCH (09:19)
[2017-01-12] MEDS: Pregabalin 75 MG CAP PO SCH ×2 (09:19→20:19)
[2017-01-12] MEDS: Timolol 0.5% Ophth Soln 5 ml Bottle EA EYE SCH (09:20)
[2017-01-12] MEDS: Diazepam 5 MG TAB PO PRN (09:23)
--- NOTE | 2017-01-12 11:14 | RAD ---
CHEST 1 VIEW: Date: 01/12/17 HISTORY: 81-year-old female with respiratory insufficiency. COMPARISON: Chest CT scan without contrast dated 09/23/15. FINDINGS: Extensive hyperinflation and chronic emphysema changes noted bilaterally. New area of parenchymal den sity with some volume loss in the left upper lobe, as well as interstitial, linear, and reticulonodul ar parenchymal changes in both bases, which is also new when compared to the prior 2016 study. Possib ilities of bilateral pneumonia or atypical pneumonia of the changes in the left apex did not appear t o be a definite cavity, although if there is any clinical concern for the possibility of TB, addition al imaging or additional laboratory evaluation in this regards should be considered. IMPRESSION: Marked hyperinflation and chronic lung changes. Interval development of new patchy interstitial and l inear, reticulonodular, and alveolar opacity changes, particularly in the left upper lobe with some v olume loss, as well as in both right and left costophrenic angles and small right pleural effusions. Bilateral pneumonia and possibly atypical pneumonia are considerations. Continued short-term follow-u p. POS: MARVIN
--- NOTE | 2017-01-12 12:51 | PDOC.PN ---
- Subjective Encounter Start Date: 01/12/17 Encounter Start Time: 09:50 Patient seen and examined. No new complaints. No overnight events - Objective Resuscitation Status: Resuscitation Status FULL:Full Resuscitation MAR Reviewed: Yes Vital Signs & Weight: Vital Signs (12 hours) Temp Pulse Resp BP BP Pulse Ox 01/12/17 09:20 102 H 172/81 H 01/12/17 08:00 97.5 F L 102 H 16 99 01/12/17 07:29 97.5 F L 109 H 18 172/81 H 95 01/12/17 07:07 99 01/12/17 07:04 95 18 99 01/12/17 01:34 96 Weight Admit Weight 98 lb 8 oz Weight 97 lb 3.568 oz Most Recent Monitor Data Heart Rate from ECG 96 NIBP 149/81 NIBP BP-Mean 110 Respiration from ECG 24 SpO2 100 I&O: 01/11/17 01/12/17 01/13/17 06:59 06:59 06:59 Intake Total 902 920 Output Total 1800 2320 Balance -898 -1400 Result Diagrams: 01/12/17 05:06 01/12/17 05:06 Phys Exam - Physical Examination Constitutional: NAD HEENT: PERRLA, moist MMs, sclera anicteric Neck: no JVD, supple Respiratory: no wheezing, no rales, no rhonchi coarse sound Cardiovascular: RRR, no significant murmur, no rub Gastrointestinal: soft, non-tender, no distention, positive bowel sounds Musculoskeletal: no edema, pulses present Neurological: non-focal, normal sensation Lymphatic: no nodes Psychiatric: normal affect Skin: no rash, normal turgor Dx/Plan (1) Acute on chronic respiratory failure with hypoxia Code(s): J96.21 - ACUTE AND CHRONIC RESPIRATORY FAILURE WITH HYPOXIA Status: Acute (2) COPD exacerbation Code(s): J44.1 - CHRONIC OBSTRUCTIVE PULMONARY DISEASE W (ACUTE) EXACERBATION Status: Acute (3) Community acquired bacterial pneumonia Code(s): J15.9 - UNSPECIFIED BACTERIAL PNEUMONIA Status: Acute (4) Sepsis with acute organ dysfunction Code(s): A41.9 - SEPSIS, UNSPECIFIED ORGANISM; R65.20 - SEVERE SEPSIS WITHOUT SEPTIC SHOCK Status: Acute (5) Anemia, normocytic normochromic Code(s): D64.9 - ANEMIA, UNSPECIFIED Status: Chronic (6) GERD (gastroesophageal reflux disease) Code(s): K21.9 - GASTRO-ESOPHAGEAL REFLUX DISEASE WITHOUT ESOPHAGITIS Status: Chronic (7) Glaucoma Code(s): H40.9 - UNSPECIFIED GLAUCOMA Status: Chronic (8) Hypothyroidism Code(s): E03.9 - HYPOTHYROIDISM, UNSPECIFIED Status: Chronic (9) PVD (peripheral vascular disease) Code(s): I73.9 - PERIPHERAL VASCULAR DISEASE, UNSPECIFIED Status: Chronic (10) Peripheral neuropathy Code(s): G62.9 - POLYNEUROPATHY, UNSPECIFIED Status: Chronic (11) Protein-calorie malnutrition, moderate Code(s): E44.0 - MODERATE PROTEIN-CALORIE MALNUTRITION Status: Chronic - Plan cont current plan of care, continue antibiotics, PT/OT, medical social worker * continue zosyn and azithromycin * medication reviewed as below * symptomatic treatment. * on discharge will consider omnicef * repeat labs tomorrow Review of Systems - Review of Systems Constitutional: Weakness. negative: Fever, Chills, Sweats, Malaise, Other ENT: negative: Ear Pain, Ear Discharge, Nose Pain, Nose Discharge, Nose Congestion, Mouth Pain, Mouth Swelling, Throat Pain, Throat Swelling, Other Respiratory: Cough, Shortness of Breath. negative: Dry, Hemoptysis, SOB with Excertion, Pleuritic Pain, Sputum, Wheezing Cardiovascular: negative: Chest Pain, Palpitations, Orthopnea, Paroxysmal Noc. Dyspnea, Edema, Light Headedness, Other Gastrointestinal: negative: Nausea, Vomiting, Abdominal Pain, Diarrhea, Constipation, Melena, Hematochezia, Other Genitourinary: negative: Dysuria, Frequency, Incontinence, Hematuria, Retention , Other Musculoskeletal: negative: Neck Pain, Shoulder Pain, Arm Pain, Back Pain, Hand Pain, Leg Pain, Foot Pain, Other Skin: negative: Rash, Lesions, Yury, Bruising, Other - Medications/Allergies Allergies/Adverse Reactions: Allergies Allergy/AdvReac Type Severity Reaction Status Date / Time Sulfa (Sulfonamide Allergy Severe Rash Verified 01/09/17 01:23 Antibiotics) codeine Allergy Verified 09/23/15 07:14 levofloxacin [From Levaquin] Allergy Verified 01/08/17 23:42 Medications: Current Medications Acetaminophen (Tylenol) 650 mg PO Q4H PRN PRN Reason: Headache/Fever or Pain Last Admin: 01/12/17 05:40 Dose: 650 mg Al Hydroxide/Mg Hydroxide (Maalox) 15 ml PO Q4H PRN PRN Reason: Heartburn or Indigestion Albuterol Sulfate (Ventolin) 2.5 mg NEB [id number] PRN PRN Reason: Wheezing Albuterol/Ipratropium (Duoneb) 3 ml NEB [id number] [facility] Last Admin: 01/12/17 07:04 Dose: 3 ml Artificial Tears (Tears Renewed 15ml Bottle) 0 drop EA EYE PRN PRN PRN Reason: Dry Eyes Benzonatate (Tessalon) 100 mg PO Q4H PRN PRN Reason: Cough Bisacodyl (Dulcolax) 10 mg PO DAILYPRN PRN PRN Reason: Constipation Last Admin: 01/10/17 20:16 Dose: 10 mg Cyclobenzaprine HCl (Flexeril) 5 mg PO Q8H PRN PRN Reason: Muscle Spasm Last Admin: 01/11/17 20:20 Dose: 5 mg Diazepam (Valium) 5 mg PO Q24H PRN PRN Reason: Anxiety Last Admin: 01/12/17 09:23 Dose: 5 mg Docusate Sodium (Colace) 100 mg PO BID [facility] Last Admin: 01/12/17 09:18 Dose: 100 mg Enoxaparin Sodium (Lovenox) 30 mg SC 0900 [facility] Last Admin: 01/12/17 09:19 Dose: 30 mg Famotidine (Pepcid) 20 mg PO BID [facility] Last Admin: 01/12/17 09:19 Dose: 20 mg Guaifenesin (Mucinex) 1,200 mg PO Q12HR [facility] Last Admin: 01/12/17 09:18 Dose: 1,200 mg Guaifenesin (Robitussin Sf) 200 mg PO Q4H PRN PRN Reason: Cough Hydralazine HCl (Apresoline) 10 mg SLOW IVP Q4H PRN PRN Reason: Systolic BP > 180 Piperacillin Sod/Tazobactam (Sod 4.5 gm/ Sodium Chloride) 100 mls @ 200 mls/hr IVPB Q6HR [facility] Last Admin: 01/12/17 12:23 Dose: 100 mls Sodium Chloride (Normal Saline 0.9%) 1,000 mls @ 0 mls/hr IV .Q0M [facility] PRN Reason: KVO Last Admin: 01/11/17 09:32 Dose: 1,000 mls Levothyroxine Sodium (Synthroid) 150 mcg PO 0600 [facility] Last Admin: 01/12/17 05:36 Dose: 150 mcg Loperamide HCl (Imodium) 2 mg PO PRN PRN PRN Reason: Diarrhea/Loose Stools Loratadine (Claritin) 10 mg PO DAILYPRN PRN PRN Reason: Sinus Symptoms Magnesium Hydroxide (Milk Of Magnesium) 30 ml PO DAILYPRN PRN PRN Reason: Constipation Mineral Oil/White Petrolatum (Eucerin Cream) 0 gm TOP BIDPRN PRN PRN Reason: Dry Skin Ondansetron HCl (Zofran Odt) 4 mg PO Q6H PRN PRN Reason: Nausea/Vomiting Ondansetron HCl (Zofran) 4 mg IVP Q6H PRN PRN Reason: Nausea/Vomiting Pantoprazole Sodium (Protonix) 40 mg PO DAILY [facility] Last Admin: 01/12/17 09:19 Dose: 40 mg Phenol (Chloraseptic [place] 180 Ml Bot) 0 ml PO PRN PRN PRN Reason: Sore Throat Prednisone (Prednisone) 40 mg PO QAM-WM [facility] Last Admin: 01/12/17 09:18 Dose: 40 mg Pregabalin (Lyrica) 75 mg PO BID [facility] Last Admin: 01/12/17 09:19 Dose: 75 mg Saccharomyces Boulardii (Florastor) 250 mg PO DAILY [facility] Last Admin: 01/12/17 09:18 Dose: 250 mg Sodium Chloride (Flush - Normal Saline) 10 ml IVF Q12HR [facility] Last Admin: 01/12/17 09:20 Dose: 10 ml Sodium Chloride (Flush - Normal Saline) 10 ml IVF PRN PRN PRN Reason: Saline Flush Last Admin: 01/08/17 23:40 Dose: 10 ml Sodium Chloride ([place] Nasal [place] 0.65%) 0 ml EA NARE QIDPRN PRN PRN Reason: Nasal Congestion Temazepam (Restoril) 15 mg PO HSPRN PRN PRN Reason: Insomnia Timolol Maleate (Timoptic 0.5% Oph Soln) 1 drop EA EYE DAILY [facility] Last Admin: 01/12/17 09:20 Dose: 1 drp
--- NOTE | 2017-01-12 13:31 | PRG ---
DATE OF SERVICE: 01/12/2017 The patient says she still feels poorly. PHYSICAL EXAMINATION: VITAL SIGNS: Temperature 97.5, pulse 102, blood pressure 172/81, 99% on 3 liters. HEENT: Unremarkable. NECK: No JVD. CHEST: Fairly clear. CARDIAC: S1 and S2 regular. ABDOMEN: Soft. EXTREMITIES: No edema. The Pseudomonas was intermediately resistant to Zosyn, but is susceptible to cefepime. LABORATORY DATA: White blood cell count 15.9, hemoglobin 11.5, hematocrit 36.3, platelet count 428. Sodium 135, potassium 3.2, chloride 98, CO2 34, BUN 12, creatinine 2.5, glucose 129. ASSESSMENT: 1. Pseudomonal pneumonia. 2. Deconditioning. 3. Chronic obstructive pulmonary disease. PLAN: Change the Zosyn to cefepime. I would anticipate her needing to be in the hospital for a lila thomas
[2017-01-12] MEDS: Cefepime 1 GM, Admixture Fee 1 EACH in Sterile Water 10 ML SLOW IVP SCH (14:18)
[2017-01-12] MEDS ORDERED: Cefepime 1 GM in Sodium Chloride 0.9% 100 ML IVPB SCH (21:00)
[2017-01-13] MEDS: Cefepime 1 GM, Admixture Fee 1 EACH in Sterile Water 10 ML SLOW IVP SCH ×2 (01:39→14:10)
[2017-01-13] MEDS: Levothyroxine Sodium 150 MCG TAB PO SCH (05:39)
[2017-01-13 06:39] LABS: Band 1 % (5-11); Hematocrit 40.5 % (36.0-47.0); Mean Platelet Volume 6.9 fL (7.4-10.4); Neutrophil 88 % (42-75); Red Blood Cell (RBC) Count 4.05 mill/uL (4.20-5.40); White Blood Cell (WBC) Count 16.1 thou/uL (4.8-10.8)
[2017-01-13] MEDS: Acetaminophen 325 MG TAB PO PRN (06:47)
[2017-01-13] MEDS: Enoxaparin Sodium 30 MG/0.3 ML SYRINGE SC SCH (07:48)
[2017-01-13] MEDS: Timolol 0.5% Ophth Soln 5 ml Bottle EA EYE SCH (07:49)
[2017-01-13] MEDS: Saccharomyces boulardii 250 MG CAP PO SCH (07:49)
[2017-01-13] MEDS: guaiFENesin ER 600 MG TAB PO SCH ×2 (07:49→19:58)
[2017-01-13] MEDS: predniSONE 20 MG TAB PO SCH (07:50)
[2017-01-13] MEDS: Pregabalin 75 MG CAP PO SCH ×2 (07:50→19:59)
[2017-01-13] MEDS: Famotidine 20 MG TAB PO SCH ×2 (07:50→19:59)
[2017-01-13] MEDS: Docusate 100 MG CAP PO SCH ×2 (07:51→19:59)
--- NOTE | 2017-01-13 11:42 | PDOC.PN ---
- Subjective Encounter Start Date: 01/13/17 Encounter Start Time: 08:00 pt is feeling cold, weak, not feeling good today. Patient seen and examined. No overnight even - Objective Resuscitation Status: Resuscitation Status FULL:Full Resuscitation MAR Reviewed: Yes Vital Signs & Weight: Vital Signs (12 hours) Temp Pulse Resp BP Pulse Ox 01/13/17 08:00 98.2 F 105 H 18 99 01/13/17 07:49 105 H 01/13/17 07:30 97.3 F L 105 H 20 164/70 H 96 01/13/17 05:39 97 01/12/17 23:49 97 Weight Admit Weight 98 lb 8 oz Weight 97 lb 3.568 oz Most Recent Monitor Data Heart Rate from ECG 96 NIBP 149/81 NIBP BP-Mean 110 Respiration from ECG 24 SpO2 100 I&O: 01/12/17 01/13/17 01/14/17 06:59 06:59 06:59 Intake Total 920 360 Output Total 2320 2850 Balance -1400 -2490 Result Diagrams: 01/13/17 05:49 01/12/17 05:06 Phys Exam - Physical Examination Constitutional: NAD HEENT: PERRLA, moist MMs, sclera anicteric Neck: no JVD, supple Respiratory: no wheezing, no rales, no rhonchi reduced air entry both side Cardiovascular: RRR, no significant murmur, no rub Gastrointestinal: soft, non-tender, no distention, positive bowel sounds Musculoskeletal: no edema, pulses present Neurological: non-focal, normal sensation Lymphatic: no nodes Psychiatric: normal affect, A&O x 3 Skin: no rash, normal turgor Dx/Plan (1) Acute on chronic respiratory failure with hypoxia Code(s): J96.21 - ACUTE AND CHRONIC RESPIRATORY FAILURE WITH HYPOXIA Status: Acute (2) COPD exacerbation Code(s): J44.1 - CHRONIC OBSTRUCTIVE PULMONARY DISEASE W (ACUTE) EXACERBATION Status: Acute (3) Community acquired bacterial pneumonia Code(s): J15.9 - UNSPECIFIED BACTERIAL PNEUMONIA Status: Acute (4) Sepsis with acute organ dysfunction Code(s): A41.9 - SEPSIS, UNSPECIFIED ORGANISM; R65.20 - SEVERE SEPSIS WITHOUT SEPTIC SHOCK Status: Acute (5) Anemia, normocytic normochromic Code(s): D64.9 - ANEMIA, UNSPECIFIED Status: Chronic (6) GERD (gastroesophageal reflux disease) Code(s): K21.9 - GASTRO-ESOPHAGEAL REFLUX DISEASE WITHOUT ESOPHAGITIS Status: Chronic (7) Glaucoma Code(s): H40.9 - UNSPECIFIED GLAUCOMA Status: Chronic (8) Hypothyroidism Code(s): E03.9 - HYPOTHYROIDISM, UNSPECIFIED Status: Chronic (9) PVD (peripheral vascular disease) Code(s): I73.9 - PERIPHERAL VASCULAR DISEASE, UNSPECIFIED Status: Chronic (10) Peripheral neuropathy Code(s): G62.9 - POLYNEUROPATHY, UNSPECIFIED Status: Chronic (11) Protein-calorie malnutrition, moderate Code(s): E44.0 - MODERATE PROTEIN-CALORIE MALNUTRITION Status: Chronic - Plan cont current plan of care, continue antibiotics * DC joel catheter * antibiotics changed zosyn to cefepime for pseudomonas coverage * medication reviewed as below * symptomatic treatment * will monitor in hospital . Review of Systems - Review of Systems Constitutional: Weakness. negative: Fever, Chills, Sweats, Malaise, Other ENT: negative: Ear Pain, Ear Discharge, Nose Pain, Nose Discharge, Nose Congestion, Mouth Pain, Mouth Swelling, Throat Pain, Throat Swelling, Other Respiratory: Cough, Shortness of Breath, SOB with Excertion. negative: Dry, Hemoptysis, Pleuritic Pain, Sputum, Wheezing Cardiovascular: negative: Chest Pain, Palpitations, Orthopnea, Paroxysmal Noc. Dyspnea, Edema, Light Headedness, Other Gastrointestinal: negative: Nausea, Vomiting, Abdominal Pain, Diarrhea, Constipation, Melena, Hematochezia, Other Genitourinary: negative: Dysuria, Frequency, Incontinence, Hematuria, Retention , Other Musculoskeletal: negative: Neck Pain, Shoulder Pain, Arm Pain, Back Pain, Hand Pain, Leg Pain, Foot Pain, Other - Medications/Allergies Allergies/Adverse Reactions: Allergies Allergy/AdvReac Type Severity Reaction Status Date / Time Sulfa (Sulfonamide Allergy Severe Rash Verified 01/09/17 01:23 Antibiotics) codeine Allergy Verified 09/23/15 07:14 levofloxacin [From Levaquin] Allergy Verified 01/08/17 23:42 Medications: Current Medications Acetaminophen (Tylenol) 650 mg PO Q4H PRN PRN Reason: Headache/Fever or Pain Last Admin: 01/13/17 06:47 Dose: 650 mg Al Hydroxide/Mg Hydroxide (Maalox) 15 ml PO Q4H PRN PRN Reason: Heartburn or Indigestion Albuterol Sulfate (Ventolin) 2.5 mg NEB [id number] PRN PRN Reason: Wheezing Albuterol/Ipratropium (Duoneb) 3 ml NEB [id number] [facility] Last Admin: 01/13/17 05:39 Dose: 3 ml Artificial Tears (Tears Renewed 15ml Bottle) 0 drop EA EYE PRN PRN PRN Reason: Dry Eyes Benzonatate (Tessalon) 100 mg PO Q4H PRN PRN Reason: Cough Bisacodyl (Dulcolax) 10 mg PO DAILYPRN PRN PRN Reason: Constipation Last Admin: 01/10/17 20:16 Dose: 10 mg Cyclobenzaprine HCl (Flexeril) 5 mg PO Q8H PRN PRN Reason: Muscle Spasm Last Admin: 01/11/17 20:20 Dose: 5 mg Diazepam (Valium) 5 mg PO Q24H PRN PRN Reason: Anxiety Last Admin: 01/12/17 09:23 Dose: 5 mg Docusate Sodium (Colace) 100 mg PO BID [facility] Last Admin: 01/13/17 07:51 Dose: 100 mg Enoxaparin Sodium (Lovenox) 30 mg SC 0900 [facility] Last Admin: 01/13/17 07:48 Dose: 30 mg Famotidine (Pepcid) 20 mg PO BID [facility] Last Admin: 01/13/17 07:50 Dose: 20 mg Guaifenesin (Mucinex) 1,200 mg PO Q12HR [facility] Last Admin: 01/13/17 07:49 Dose: 1,200 mg Guaifenesin (Robitussin Sf) 200 mg PO Q4H PRN PRN Reason: Cough Hydralazine HCl (Apresoline) 10 mg SLOW IVP Q4H PRN PRN Reason: Systolic BP > 180 Sodium Chloride (Normal Saline 0.9%) 1,000 mls @ 0 mls/hr IV .Q0M [facility] PRN Reason: KVO Last Admin: 01/11/17 09:32 Dose: 1,000 mls Cefepime HCl 1 gm/Miscellaneous Medication 1 each/ Sterile Water 10 mls @ 120 mls/hr SLOW IVP 0200,1400 [facility] Last Admin: 01/13/17 01:39 Dose: 10 mls Levothyroxine Sodium (Synthroid) 150 mcg PO 0600 [facility] Last Admin: 01/13/17 05:39 Dose: 150 mcg Loperamide HCl (Imodium) 2 mg PO PRN PRN PRN Reason: Diarrhea/Loose Stools Loratadine (Claritin) 10 mg PO DAILYPRN PRN PRN Reason: Sinus Symptoms Magnesium Hydroxide (Milk Of Magnesium) 30 ml PO DAILYPRN PRN PRN Reason: Constipation Mineral Oil/White Petrolatum (Eucerin Cream) 0 gm TOP BIDPRN PRN PRN Reason: Dry Skin Ondansetron HCl (Zofran Odt) 4 mg PO Q6H PRN PRN Reason: Nausea/Vomiting Ondansetron HCl (Zofran) 4 mg IVP Q6H PRN PRN Reason: Nausea/Vomiting Pantoprazole Sodium (Protonix) 40 mg PO DAILY [facility] Last Admin: 01/13/17 07:50 Dose: 40 mg Phenol (Chloraseptic [place] 180 Ml Bot) 0 ml PO PRN PRN PRN Reason: Sore Throat Prednisone (Prednisone) 40 mg PO QAM-[facility] Last Admin: 01/13/17 07:50 Dose: 40 mg Pregabalin (Lyrica) 75 mg PO BID [facility] Last Admin: 01/13/17 07:50 Dose: 75 mg Saccharomyces Boulardii (Florastor) 250 mg PO DAILY [facility] Last Admin: 01/13/17 07:49 Dose: 250 mg Sodium Chloride (Flush - Normal Saline) 10 ml IVF Q12HR [facility] Last Admin: 01/13/17 07:52 Dose: 10 ml Sodium Chloride (Flush - Normal Saline) 10 ml IVF PRN PRN PRN Reason: Saline Flush Last Admin: 01/08/17 23:40 Dose: 10 ml Sodium Chloride ([place] Nasal Calcium 0.65%) 0 ml EA NARE QIDPRN PRN PRN Reason: Nasal Congestion Temazepam (Restoril) 15 mg PO HSPRN PRN PRN Reason: Insomnia Timolol Maleate (Timoptic 0.5% Oph Soln) 1 drop EA EYE DAILY [facility] Last Admin: 01/13/17 07:49 Dose: 1 drp
--- NOTE | 2017-01-13 13:36 | PRG ---
DATE OF SERVICE: 01/13/2017 SUBJECTIVE: Ms. Judge still feels poorly. She is more talkative than yesterday. PHYSICAL EXAMINATION: VITAL SIGNS: Temperature is 98.2, pulse 105, respirations 18, O2 sat 99% on 3 liters, blood pressure 164/70. HEENT: Unremarkable. NECK: No JVD. LUNGS: Scattered inspiratory crackles. CARDIAC: S1 and S2 regular. ABDOMEN: Soft. EXTREMITIES: No edema. LABORATORY DATA: White blood cell count 16.1, hematocrit 40, platelet count 493. ASSESSMENT: Left upper lobe pseudomonal pneumonia. PLAN: 1. Continue antibiotics. 2. She needs time.
[2017-01-13] MEDS: FLUTICASONE INH SCH (19:59)
[2017-01-13] MEDS: SALMETEROL INH SCH (19:59)
[2017-01-13] MEDS: ALBUTEROL INH SCH (20:00)
[2017-01-13] MEDS: Diazepam 5 MG TAB PO PRN (21:10)
[2017-01-14] MEDS: Cefepime 1 GM, Admixture Fee 1 EACH in Sterile Water 10 ML SLOW IVP SCH ×2 (02:45→14:29)
[2017-01-14] MEDS: Acetaminophen 325 MG TAB PO PRN (03:50)
[2017-01-14 05:28] LABS: Band 1 % (5-11); Hematocrit 41.3 % (36.0-47.0); Mean Platelet Volume 7.5 fL (7.4-10.4); Neutrophil 84 % (42-75); Red Blood Cell (RBC) Count 4.17 mill/uL (4.20-5.40); White Blood Cell (WBC) Count 18.4 thou/uL (4.8-10.8)
[2017-01-14 05:35] LABS: Anion Gap 10 mmol/L (10-20); Carbon Dioxide 40 mmol/L (23-31); Chloride 91 mmol/L (98-107)
[2017-01-14 05:48] LABS: ALT (SGPT) 16 U/L (8-55); AST (SGOT) 22 U/L (5-34); Alkaline Phosphatase 96 U/L (40-150); BUN (Urea Nitrogen) 11 mg/dL (9.8-20.1); Bilirubin, Total 0.5 mg/dL (0.2-1.2); Calc. Creatinine Clearance 58 mL/min (70-130); Calcium 9.1 mg/dL (7.8-10.44); Estimated GFR-MDRD Greater than 90; Globulin 3.3 g/dL (2.4-3.5); Protein, Total 6.3 g/dL (6.0-8.3)
[2017-01-14] MEDS: Levothyroxine Sodium 150 MCG TAB PO SCH (06:26)
[2017-01-14] MEDS: Timolol 0.5% Ophth Soln 5 ml Bottle EA EYE SCH (08:08)
[2017-01-14] MEDS: SALMETEROL INH SCH ×2 (08:09→20:11)
[2017-01-14] MEDS: ALBUTEROL INH SCH ×3 (08:09→20:12)
[2017-01-14] MEDS: FLUTICASONE INH SCH ×2 (08:09→20:11)
[2017-01-14] MEDS: Enoxaparin Sodium 30 MG/0.3 ML SYRINGE SC SCH (08:10)
[2017-01-14] MEDS: Saccharomyces boulardii 250 MG CAP PO SCH (08:11)
[2017-01-14] MEDS: Pregabalin 75 MG CAP PO SCH ×2 (08:12→20:11)
[2017-01-14] MEDS: guaiFENesin ER 600 MG TAB PO SCH ×2 (08:12→20:11)
[2017-01-14] MEDS: predniSONE 20 MG TAB PO SCH (08:13)
[2017-01-14] MEDS: Famotidine 20 MG TAB PO SCH ×2 (08:14→20:10)
[2017-01-14] MEDS: Cyclobenzaprine 10 MG TAB PO PRN (08:22)
[2017-01-14] MEDS: Docusate 100 MG CAP PO SCH ×2 (08:24→20:11)
--- NOTE | 2017-01-14 13:17 | PDOC.PN ---
- Subjective Encounter Start Date: 01/14/17 Encounter Start Time: 11:00 pt is c/o edema leg, no fever, has dyspnea - Objective Resuscitation Status: Resuscitation Status FULL:Full Resuscitation MAR Reviewed: Yes Vital Signs & Weight: Vital Signs (12 hours) Temp Pulse Resp BP BP Pulse Ox 01/14/17 08:08 107 H 153/76 H 01/14/17 08:00 97.7 F 107 H 16 01/14/17 06:18 100 01/14/17 06:16 87 16 01/14/17 04:00 164/70 H Weight Admit Weight 98 lb 8 oz Weight 97 lb 3.568 oz Most Recent Monitor Data Heart Rate from ECG 96 NIBP 149/81 NIBP BP-Mean 110 Respiration from ECG 24 SpO2 100 I&O: 01/13/17 01/14/17 01/15/17 06:59 06:59 06:59 Intake Total 360 1200 Output Total 2850 5150 Balance -5090 -5175 Result Diagrams: 01/14/17 04:44 01/14/17 04:44 Phys Exam - Physical Examination Constitutional: NAD HEENT: PERRLA, moist MMs, sclera anicteric Neck: no JVD, supple Respiratory: no wheezing, no rales, no rhonchi Cardiovascular: RRR, no significant murmur, no rub Gastrointestinal: soft, non-tender, no distention, positive bowel sounds Musculoskeletal: pulses present, edema present Neurological: non-focal, normal sensation, moves all 4 limbs Lymphatic: no nodes Psychiatric: normal affect, A&O x 3 Skin: no rash, normal turgor Dx/Plan (1) Acute on chronic respiratory failure with hypoxia Code(s): J96.21 - ACUTE AND CHRONIC RESPIRATORY FAILURE WITH HYPOXIA Status: Acute (2) COPD exacerbation Code(s): J44.1 - CHRONIC OBSTRUCTIVE PULMONARY DISEASE W (ACUTE) EXACERBATION Status: Acute (3) Community acquired bacterial pneumonia Code(s): J15.9 - UNSPECIFIED BACTERIAL PNEUMONIA Status: Acute (4) Sepsis with acute organ dysfunction Code(s): A41.9 - SEPSIS, UNSPECIFIED ORGANISM; R65.20 - SEVERE SEPSIS WITHOUT SEPTIC SHOCK Status: Acute (5) Anemia, normocytic normochromic Code(s): D64.9 - ANEMIA, UNSPECIFIED Status: Chronic (6) GERD (gastroesophageal reflux disease) Code(s): K21.9 - GASTRO-ESOPHAGEAL REFLUX DISEASE WITHOUT ESOPHAGITIS Status: Chronic (7) Glaucoma Code(s): H40.9 - UNSPECIFIED GLAUCOMA Status: Chronic (8) Hypothyroidism Code(s): E03.9 - HYPOTHYROIDISM, UNSPECIFIED Status: Chronic (9) PVD (peripheral vascular disease) Code(s): I73.9 - PERIPHERAL VASCULAR DISEASE, UNSPECIFIED Status: Chronic (10) Peripheral neuropathy Code(s): G62.9 - POLYNEUROPATHY, UNSPECIFIED Status: Chronic (11) Protein-calorie malnutrition, moderate Code(s): E44.0 - MODERATE PROTEIN-CALORIE MALNUTRITION Status: Chronic - Plan cont current plan of care, continue antibiotics, respiratory therapy * will give one dose of lasix * continue cefepime * will repeat labs tomorrow * medication reviewed as below * symptomatic treatment. Review of Systems - Review of Systems Constitutional: negative: Fever, Chills, Sweats, Weakness, Malaise, Other Eyes: negative: Pain, Vision Change, Conjunctivae Inflammation, Eyelid Inflammation, Redness, Other ENT: negative: Ear Pain, Ear Discharge, Nose Pain, Nose Discharge, Nose Congestion, Mouth Pain, Mouth Swelling, Throat Pain, Throat Swelling, Other Respiratory: Cough, Shortness of Breath, SOB with Excertion Cardiovascular: Edema. negative: Chest Pain, Palpitations, Orthopnea, Paroxysmal Noc. Dyspnea, Light Headedness, Other Gastrointestinal: negative: Nausea, Vomiting, Abdominal Pain, Diarrhea, Constipation, Melena, Hematochezia, Other Genitourinary: negative: Dysuria, Frequency, Incontinence, Hematuria, Retention , Other Musculoskeletal: negative: Neck Pain, Shoulder Pain, Arm Pain, Back Pain, Hand Pain, Leg Pain, Foot Pain, Other Skin: negative: Rash, Lesions, [place], Bruising, Other - Medications/Allergies Allergies/Adverse Reactions: Allergies Allergy/AdvReac Type Severity Reaction Status Date / Time Sulfa (Sulfonamide Allergy Severe Rash Verified 01/09/17 01:23 Antibiotics) codeine Allergy Verified 09/23/15 07:14 levofloxacin [From Levaquin] Allergy Verified 01/08/17 23:42 Medications: Current Medications Acetaminophen (Tylenol) 650 mg PO Q4H PRN PRN Reason: Headache/Fever or Pain Last Admin: 01/14/17 03:50 Dose: 650 mg Al Hydroxide/Mg Hydroxide (Maalox) 15 ml PO Q4H PRN PRN Reason: Heartburn or Indigestion Albuterol Sulfate (Ventolin) 2.5 mg NEB [id number] PRN PRN Reason: Wheezing Albuterol/Ipratropium (Duoneb) 3 ml NEB [id number] [facility] Last Admin: 01/14/17 06:16 Dose: 3 ml Artificial Tears (Tears Renewed 15ml Bottle) 0 drop EA EYE PRN PRN PRN Reason: Dry Eyes Benzonatate (Tessalon) 100 mg PO Q4H PRN PRN Reason: Cough Bisacodyl (Dulcolax) 10 mg PO DAILYPRN PRN PRN Reason: Constipation Last Admin: 01/10/17 20:16 Dose: 10 mg Cyclobenzaprine HCl (Flexeril) 5 mg PO Q8H PRN PRN Reason: Muscle Spasm Last Admin: 01/14/17 08:22 Dose: 5 mg Diazepam (Valium) 5 mg PO Q24H PRN PRN Reason: Anxiety Last Admin: 01/13/17 21:10 Dose: 5 mg Docusate Sodium (Colace) 100 mg PO BID [facility] Last Admin: 01/14/17 08:24 Dose: Not Given Enoxaparin Sodium (Lovenox) 30 mg SC 0900 [facility] Last Admin: 01/14/17 08:10 Dose: 30 mg Famotidine (Pepcid) 20 mg PO BID [facility] Last Admin: 01/14/17 08:14 Dose: 20 mg Guaifenesin (Mucinex) 1,200 mg PO Q12HR [facility] Last Admin: 01/14/17 08:12 Dose: 1,200 mg Guaifenesin (Robitussin Sf) 200 mg PO Q4H PRN PRN Reason: Cough Hydralazine HCl (Apresoline) 10 mg SLOW IVP Q4H PRN PRN Reason: Systolic BP > 180 Last Admin: 01/13/17 20:42 Dose: 10 mg Sodium Chloride (Normal Saline 0.9%) 1,000 mls @ 0 mls/hr IV .Q0M [facility] PRN Reason: KVO Last Admin: 01/11/17 09:32 Dose: 1,000 mls Cefepime HCl 1 gm/Miscellaneous Medication 1 each/ Sterile Water 10 mls @ 120 mls/hr SLOW IVP 0200,1400 [facility] Last Admin: 01/14/17 02:45 Dose: 10 mls Levothyroxine Sodium (Synthroid) 150 mcg PO 0600 [facility] Last Admin: 01/14/17 06:26 Dose: 150 mcg Loperamide HCl (Imodium) 2 mg PO PRN PRN PRN Reason: Diarrhea/Loose Stools Loratadine (Claritin) 10 mg PO DAILYPRN PRN PRN Reason: Sinus Symptoms Magnesium Hydroxide (Milk Of Magnesium) 30 ml PO DAILYPRN PRN PRN Reason: Constipation Mineral Oil/White Petrolatum (Eucerin Cream) 0 gm TOP BIDPRN PRN PRN Reason: Dry Skin Ondansetron HCl (Zofran Odt) 4 mg PO Q6H PRN PRN Reason: Nausea/Vomiting Ondansetron HCl (Zofran) 4 mg IVP Q6H PRN PRN Reason: Nausea/Vomiting Pantoprazole Sodium (Protonix) 40 mg PO DAILY [facility] Last Admin: 01/14/17 08:12 Dose: 40 mg Albuterol (Proair) (Hfa 8.5 Gm) 0 each INH TID [facility] Last Admin: 01/14/17 08:09 Dose: 1 each Fluticasone/Salmeterol (Advair) 250/50 Mcg 0 each INH BID [facility] Last Admin: 01/14/17 08:09 Dose: 1 each Phenol (Chloraseptic [place] 180 Ml Bot) 0 ml PO PRN PRN PRN Reason: Sore Throat Prednisone (Prednisone) 40 mg PO QAM-WM [facility] Last Admin: 01/14/17 08:13 Dose: 40 mg Pregabalin (Lyrica) 75 mg PO BID [facility] Last Admin: 01/14/17 08:12 Dose: 75 mg Saccharomyces Boulardii (Florastor) 250 mg PO DAILY [facility] Last Admin: 01/14/17 08:11 Dose: 250 mg Sodium Chloride (Flush - Normal Saline) 10 ml IVF Q12HR [facility] Last Admin: 01/14/17 08:24 Dose: Not Given Sodium Chloride (Flush - Normal Saline) 10 ml IVF PRN PRN PRN Reason: Saline Flush Last Admin: 01/08/17 23:40 Dose: 10 ml Sodium Chloride ([place] Nasal [place] 0.65%) 0 ml EA NARE QIDPRN PRN PRN Reason: Nasal Congestion Temazepam (Restoril) 15 mg PO HSPRN PRN PRN Reason: Insomnia Timolol Maleate (Timoptic 0.5% Ophth Soln) 1 drop EA EYE DAILY [facility] Last Admin: 01/14/17 08:08 Dose: 1 drp
[2017-01-14] MEDS ORDERED: Furosemide 40 MG/4 ML VIAL SLOW IVP SCH (13:30)
--- NOTE | 2017-01-14 14:03 | PRG ---
DATE OF SERVICE: 01/14/2017 SUBJECTIVE: The patient seems to be doing okay. PHYSICAL EXAMINATION: VITAL SIGNS: Temperature 97.7, pulse 107, blood pressure 153/76, O2 sat 100% on 3 liters. HEENT: Unremarkable. NECK: No JVD. LUNGS: Clear without wheezing. CARDIAC: S1 and S2 regular. ABDOMEN: Soft. EXTREMITIES: No edema. LABORATORY DATA: White blood cell count 18, hematocrit 41.3, platelet count 405,000. Sodium 137, po tassium 3.9, chloride 91, CO2 of 40, BUN 11, creatinine 0.5, glucose 82. ASSESSMENT: Pseudomonas pneumonia in the left upper lobe. PLAN: Continue the cefepime and she likely needs 7-10 days of therapy. I think that she will probab ly need IV antibiotics and rehabilitation. Her only oral choice to change to would be a quinolone an d she is allergic to QUINOLONES.
[2017-01-14] MEDS: Diazepam 5 MG TAB PO PRN (16:10)
[2017-01-15] MEDS: Cefepime 1 GM, Admixture Fee 1 EACH in Sterile Water 10 ML SLOW IVP SCH ×2 (02:56→15:44)
[2017-01-15 06:07] LABS: Band 4 % (5-11); Mean Platelet Volume 7.3 fL (7.4-10.4); Neutrophil 86 % (42-75); Red Blood Cell (RBC) Count 4.22 mill/uL (4.20-5.40); White Blood Cell (WBC) Count 31.5 thou/uL (4.8-10.8)
[2017-01-15] MEDS: Levothyroxine Sodium 150 MCG TAB PO SCH (06:11)
[2017-01-15] MEDS: Timolol 0.5% Ophth Soln 5 ml Bottle EA EYE SCH (08:15)
[2017-01-15] MEDS: guaiFENesin ER 600 MG TAB PO SCH ×2 (08:16→20:03)
[2017-01-15] MEDS: SALMETEROL INH SCH ×2 (08:17→20:03)
[2017-01-15] MEDS: FLUTICASONE INH SCH ×2 (08:17→20:03)
[2017-01-15] MEDS: predniSONE 20 MG TAB PO SCH (08:17)
[2017-01-15] MEDS: Saccharomyces boulardii 250 MG CAP PO SCH (08:18)
[2017-01-15] MEDS: Docusate 100 MG CAP PO SCH ×2 (08:18→15:57)
[2017-01-15] MEDS: Famotidine 20 MG TAB PO SCH ×2 (08:18→20:03)
[2017-01-15] MEDS: Pregabalin 75 MG CAP PO SCH ×2 (08:19→20:04)
[2017-01-15] MEDS: Diazepam 5 MG TAB PO PRN (08:30)
[2017-01-15] MEDS: Enoxaparin Sodium 30 MG/0.3 ML SYRINGE SC SCH (08:30)
--- NOTE | 2017-01-15 08:42 | RAD ---
PA AND LATERAL CHEST: Date: 01/15/17 HISTORY: Pneumonia. COMPARISON: 01/12/17. FINDINGS: Lungs remain hyperinflated bilaterally with flattening of the hemidiaphragm suggesting COPD. Parenchy mal opacity within the left upper lobe and left lung apex is again seen, and the degree of parenchyma l opacity has increased. The prominent calcification in the right lung apex is again present. There i s biapical pleural and parenchymal scarring present. Bilateral pleural effusions are present. Cardiac silhouette is within normal limits. There are scattered increased interstitial densities bilaterally , greater on the left. Chest is otherwise unchanged from study on 01/12/17. IMPRESSION: 1. Interval increase in parenchymal opacity in the left upper lobe/left lung apex. There are associa spenser increased interstitial opacities present within the left lung greater at the left lung base. Find ings may be related to infectious process, and atypical infection, such as tuberculosis, could not be entirely excluded as noted on the prior exam. 2. Chronic lung changes and evidence of COPD. 3. Bilateral pleural effusions. 4. Osteopenia. POS: [facility]
[2017-01-15] MEDS: ALBUTEROL INH SCH ×3 (08:55→20:03)
--- NOTE | 2017-01-15 12:12 | PDOC.PN ---
- Subjective Encounter Start Date: 01/15/17 Encounter Start Time: 10:30 Patient seen and examined. No new complaints. No overnight events - Objective Resuscitation Status: Resuscitation Status FULL:Full Resuscitation MAR Reviewed: Yes Vital Signs & Weight: Vital Signs (12 hours) Temp Pulse Resp BP Pulse Ox 01/15/17 11:07 85 100 01/15/17 08:27 116 H 22 H 95 01/15/17 08:00 97.6 F 116 H 22 H 127/67 84 L 01/15/17 07:01 95 16 98 01/15/17 00:28 98 Weight Admit Weight 98 lb 8 oz Weight 97 lb 3.568 oz Most Recent Monitor Data Heart Rate from ECG 96 NIBP 149/81 NIBP BP-Mean 110 Respiration from ECG 24 SpO2 100 I&O: 01/14/17 01/15/17 01/16/17 06:59 06:59 06:59 Intake Total 1200 1360 Output Total 5150 6 Balance -3950 1354 Result Diagrams: 01/15/17 04:57 01/14/17 04:44 Radiology Reviewed by me: Yes (chest xray) Phys Exam - Physical Examination Constitutional: NAD HEENT: PERRLA, moist MMs, sclera anicteric Neck: no JVD, supple Respiratory: no wheezing, no rales, no rhonchi coarse sound+ Cardiovascular: RRR, no significant murmur, no rub Gastrointestinal: soft, non-tender, no distention, positive bowel sounds Musculoskeletal: no edema, pulses present Neurological: non-focal, normal sensation Lymphatic: no nodes Psychiatric: normal affect, A&O x 3 Skin: no rash, normal turgor Dx/Plan (1) Acute on chronic respiratory failure with hypoxia Code(s): J96.21 - ACUTE AND CHRONIC RESPIRATORY FAILURE WITH HYPOXIA Status: Acute (2) COPD exacerbation Code(s): J44.1 - CHRONIC OBSTRUCTIVE PULMONARY DISEASE W (ACUTE) EXACERBATION Status: Acute (3) Community acquired bacterial pneumonia Code(s): J15.9 - UNSPECIFIED BACTERIAL PNEUMONIA Status: Acute (4) Sepsis with acute organ dysfunction Code(s): A41.9 - SEPSIS, UNSPECIFIED ORGANISM; R65.20 - SEVERE SEPSIS WITHOUT SEPTIC SHOCK Status: Acute (5) Anemia, normocytic normochromic Code(s): D64.9 - ANEMIA, UNSPECIFIED Status: Chronic (6) GERD (gastroesophageal reflux disease) Code(s): K21.9 - GASTRO-ESOPHAGEAL REFLUX DISEASE WITHOUT ESOPHAGITIS Status: Chronic (7) Glaucoma Code(s): H40.9 - UNSPECIFIED GLAUCOMA Status: Chronic (8) Hypothyroidism Code(s): E03.9 - HYPOTHYROIDISM, UNSPECIFIED Status: Chronic (9) PVD (peripheral vascular disease) Code(s): I73.9 - PERIPHERAL VASCULAR DISEASE, UNSPECIFIED Status: Chronic (10) Peripheral neuropathy Code(s): G62.9 - POLYNEUROPATHY, UNSPECIFIED Status: Chronic (11) Protein-calorie malnutrition, moderate Code(s): E44.0 - MODERATE PROTEIN-CALORIE MALNUTRITION Status: Chronic - Plan cont current plan of care, continue antibiotics, rn social services * spoke with dr poole, she will need longer antibiotics * will consult ID to decide about antibiotics * if needs IV antibiotics then will get picc line and social work to arrange iv antibiotics * pt prefers to get iv antibiotics at [facility] if needed * still wbc count fluctuates. * unsure ceftin or omnicef is option or not, will ask ID * medication reviewed as below * symptomatic treatment Review of Systems - Review of Systems ENT: negative: Ear Pain, Ear Discharge, Nose Pain, Nose Discharge, Nose Congestion, Mouth Pain, Mouth Swelling, Throat Pain, Throat Swelling, Other Respiratory: negative: Cough, Dry, Shortness of Breath, Hemoptysis, SOB with Excertion, Pleuritic Pain, Sputum, Wheezing Cardiovascular: negative: Chest Pain, Palpitations, Orthopnea, Paroxysmal Noc. Dyspnea, Edema, Light Headedness, Other Gastrointestinal: negative: Nausea, Vomiting, Abdominal Pain, Diarrhea, Constipation, Melena, Hematochezia, Other Genitourinary: negative: Dysuria, Frequency, Incontinence, Hematuria, Retention , Other Musculoskeletal: negative: Neck Pain, Shoulder Pain, Arm Pain, Back Pain, Hand Pain, Leg Pain, Foot Pain, Other Skin: negative: Rash, Lesions, Yury, Bruising, Other - Medications/Allergies Allergies/Adverse Reactions: Allergies Allergy/AdvReac Type Severity Reaction Status Date / Time Sulfa (Sulfonamide Allergy Severe Rash Verified 01/09/17 01:23 Antibiotics) codeine Allergy Verified 09/23/15 07:14 levofloxacin [From Levaquin] Allergy Verified 01/08/17 23:42 Medications: Current Medications Acetaminophen (Tylenol) 650 mg PO Q4H PRN PRN Reason: Headache/Fever or Pain Last Admin: 01/14/17 03:50 Dose: 650 mg Al Hydroxide/Mg Hydroxide (Maalox) 15 ml PO Q4H PRN PRN Reason: Heartburn or Indigestion Albuterol Sulfate (Ventolin) 2.5 mg NEB [id number] PRN PRN Reason: Wheezing Albuterol/Ipratropium (Duoneb) 3 ml NEB [id number] [facility] Last Admin: 01/15/17 07:01 Dose: 3 ml Artificial Tears (Tears Renewed 15ml Bottle) 0 drop EA EYE PRN PRN PRN Reason: Dry Eyes Benzonatate (Tessalon) 100 mg PO Q4H PRN PRN Reason: Cough Bisacodyl (Dulcolax) 10 mg PO DAILYPRN PRN PRN Reason: Constipation Last Admin: 01/10/17 20:16 Dose: 10 mg Cyclobenzaprine HCl (Flexeril) 5 mg PO Q8H PRN PRN Reason: Muscle Spasm Last Admin: 01/14/17 08:22 Dose: 5 mg Diazepam (Valium) 5 mg PO BID PRN PRN Reason: Anxiety Last Admin: 01/15/17 08:30 Dose: 5 mg Docusate Sodium (Colace) 100 mg PO BID [facility] Last Admin: 01/15/17 08:18 Dose: 100 mg Enoxaparin Sodium (Lovenox) 30 mg SC 0900 [facility] Last Admin: 01/15/17 08:30 Dose: 30 mg Famotidine (Pepcid) 20 mg PO BID [facility] Last Admin: 01/15/17 08:18 Dose: 20 mg Guaifenesin (Mucinex) 1,200 mg PO Q12HR [facility] Last Admin: 01/15/17 08:16 Dose: 1,200 mg Guaifenesin (Robitussin Sf) 200 mg PO Q4H PRN PRN Reason: Cough Hydralazine HCl (Apresoline) 10 mg SLOW IVP Q4H PRN PRN Reason: Systolic BP > 180 Last Admin: 01/13/17 20:42 Dose: 10 mg Sodium Chloride (Normal Saline 0.9%) 1,000 mls @ 0 mls/hr IV .Q0M [facility] PRN Reason: KVO Last Admin: 01/11/17 09:32 Dose: 1,000 mls Cefepime HCl 1 gm/Miscellaneous Medication 1 each/ Sterile Water 10 mls @ 120 mls/hr SLOW IVP 0200,1400 [facility] Last Admin: 01/15/17 02:56 Dose: 10 mls Levothyroxine Sodium (Synthroid) 150 mcg PO 0600 [facility] Last Admin: 01/15/17 06:11 Dose: 150 mcg Loperamide HCl (Imodium) 2 mg PO PRN PRN PRN Reason: Diarrhea/Loose Stools Loratadine (Claritin) 10 mg PO DAILYPRN PRN PRN Reason: Sinus Symptoms Magnesium Hydroxide (Milk Of Magnesium) 30 ml PO DAILYPRN PRN PRN Reason: Constipation Mineral Oil/White Petrolatum (Eucerin Cream) 0 gm TOP BIDPRN PRN PRN Reason: Dry Skin Ondansetron HCl (Zofran Odt) 4 mg PO Q6H PRN PRN Reason: Nausea/Vomiting Ondansetron HCl (Zofran) 4 mg IVP Q6H PRN PRN Reason: Nausea/Vomiting Pantoprazole Sodium (Protonix) 40 mg PO DAILY [facility] Last Admin: 01/15/17 08:19 Dose: 40 mg Albuterol (Proair) (Hfa 8.5 Gm) 0 each INH TID [facility] Last Admin: 01/15/17 08:55 Dose: 1 each Fluticasone/Salmeterol (Advair) 250/50 Mcg 0 each INH BID [facility] Last Admin: 01/15/17 08:17 Dose: 1 each Phenol (Chloraseptic [place] 180 Ml Bot) 0 ml PO PRN PRN PRN Reason: Sore Throat Prednisone (Prednisone) 40 mg PO QAM-WM [facility] Last Admin: 01/15/17 08:17 Dose: 40 mg Pregabalin (Lyrica) 75 mg PO BID [facility] Last Admin: 01/15/17 08:19 Dose: 75 mg Saccharomyces Boulardii (Florastor) 250 mg PO DAILY [facility] Last Admin: 01/15/17 08:18 Dose: 250 mg Sodium Chloride (Flush - Normal Saline) 10 ml IVF Q12HR [facility] Last Admin: 01/15/17 08:55 Dose: Not Given Sodium Chloride (Flush - Normal Saline) 10 ml IVF PRN PRN PRN Reason: Saline Flush Last Admin: 01/08/17 23:40 Dose: 10 ml Sodium Chloride ([place] Nasal [place] 0.65%) 0 ml EA NARE QIDPRN PRN PRN Reason: Nasal Congestion Temazepam (Restoril) 15 mg PO HSPRN PRN PRN Reason: Insomnia Timolol Maleate (Timoptic 0.5% Oph Soln) 1 drop EA EYE DAILY [facility] Last Admin: 01/15/17 08:15 Dose: 1 drp
--- NOTE | 2017-01-15 13:21 | PRG ---
DATE OF SERVICE: 01/15/2017 SERVICE: Pulmonary Medicine. INTERVAL HISTORY: The patient is doing fine from a respiratory standpoint. She has no specific comp laints of fevers, chills, nausea, vomiting or chest discomfort. She was up walking to the bathroom. She feels extraordinarily weak. Outside of that, she is returning to her usual state of health. Jorge brush continues to cough up a little bit of sputum, but it is slowing down and clearing. Otherwise, pamela brush has been no interval change to her condition. PHYSICAL EXAMINATION: VITAL SIGNS: Afebrile, pulse 85, blood pressure 127/67, respirations 22, saturation 95% on 3 liters nasal cannula. GENERAL: Patient is awake and alert, in no apparent distress. LUNGS: Excellent air entry. There is no prolonged expiratory phase, wheezing, rhonchi or crackles. HEART: Normal rate and regular. ABDOMEN: Soft, nontender, nondistended. Bowel sounds are positive. MUSCULOSKELETAL: No cyanosis or clubbing. There is trace to 1+ pitting in the bilateral lower extre mities. NEUROLOGIC: Grossly nonfocal. LABORATORY DATA: WBC 31.5, hemoglobin 13.1, and platelets 453,000. There has been an increase in he r band count once again. Basic metabolic profile and liver function studies were previously unremark able. TSH is normal. IMAGING: Chest x-ray demonstrates interval increase in the parenchymal opacity in the left upper lob e, lung apex. There are increased interstitial opacities in the left lung as well as the left base. Chronic lung changes and evidence of COPD is also present. Bilateral pleural effusions are identifi ed, osteopenia. ASSESSMENT: 1. Acute on chronic hypoxic respiratory failure, resolved to baseline. 2. Community-acquired pneumonia/bullitis secondary to Pseudomonas aeruginosa. 3. Chronic obstructive pulmonary disease with acute exacerbation. PLAN: The patient will require protracted course of antibiotics because of the bullitis. This is no t a standard community-acquired pneumonia. Needs to be treated similar to a pulmonary abscess. ID c onsult will be placed to see if there is any other enteral route that is safety to use as she has a F LUOROQUINOLONE allergy. If there is not, she will need a PICC line and will need to setup protracted course of antibiotic. If the white blood cell count continues to trend upward, I will do a bedside ultrasound and preparation for thoracentesis if there is fluid.
--- NOTE | 2017-01-15 15:17 | CON ---
DATE OF CONSULTATION: 01/15/2017 REASON FOR CONSULTATION: Cavitary pneumonia. HISTORY OF PRESENT ILLNESS: A 81-year-old who has a history of COPD with a previous admission in 09/2015 when she was treated for acute on chronic hypoxic respiratory failure. At that time, she had a CT of the chest, which showed severe emphysematous changes. In 2014, she had a previous CT with bullous changes in the lung bases. A pleural based density in the right upper lobe, which had cleared. In 09/2015, CT of chest showed severe emphysematous changes throughout each lung with scattered areas of scarring and atelectases and stable calcified nodule in the right apex. After that the patient remain in her usual state with some dyspnea on effort with need to use O2 at home inhalers and then she was seen by her physician in [place] for worsening cough and nasal drainage, which failed outpatient management. The patient had temperature elevation of 100.9. Initial O2 sat assessment was 95%. She had some wheezing in the upper lung larose. The chest x-ray showed left upper lobe infiltrate. White cell count 28,000. Therefore, the patient was admitted initially treated with Rocephin and azithromycin as well as Solu-Medrol. Because of the findings on CT scan, it was decided to transfer her to [facility] for higher level of care. The CT scan demonstrated areas of cavitary change in the left upper lobe. Currently, Ms. Judge is awake and anxious to go back home and some cough, but less than before. Overall, feels improved. No headaches, no visual symptoms, sore throat, odynophagia, or dysphagia. She does not recall any aspiration episodes. No back pain, no chest pain, no abdominal pain or diarrhea. Voiding without difficulty. No joint symptoms. PAST MEDICAL HISTORY: Chronic obstructive pulmonary disease with emphysema, hypothyroidism, neuropathy, back pain prior intervention, glaucoma, and peripheral vascular disease. PAST SURGICAL HISTORY: Also tonsillectomy, esophageal dilation, and colonoscopy. FAMILY HISTORY: Noncontributory. SOCIAL HISTORY: Quit smoking many years ago. Lives in an area close to [place]. ALLERGIES: SULFAMETHOXAZOLE, CODEINE, SULFATE and now looks like she had skin rash, which developed following initiation of LEVOFLOXACIN. HOME MEDICATIONS: Timolol, diazepam, levofloxacin, ProAir, Nexium, Lyrica, and here she is receiving albuterol, Ventolin, cefepime. She is on prednisone as well. PHYSICAL EXAMINATION: VITAL SIGNS: Includes, T-max 98.6. Currently, blood pressure 120/60, pulse 85 , respirations 22, and O2 sat 100%. GENERAL: Appears no acute distress, a peripheral IV access. No Romero catheter. No lymphadenopathy. HEENT: Ocular movements are conjugate. Oral cavity with still quite a few teeth in place with significant decay and gum disease. NECK: Supple, no jugular venous distention. LUNGS: With diminished breath sounds, few scattered wheezes. No crackles. HEART: S1 and S2, regular rate without murmurs. ABDOMEN: Soft. Not distended or tender. No ascites. No bladder distention. EXTREMITIES: No joint inflammatory activity. Pulses are 1+ in dorsalis pedis. Moves extremities equally. NEUROLOGIC: Cognitive function appears to be intact. LABORATORY DATA: White cell count is up to 31,000, hemoglobin 13, and platelets 453. Sodium 137, creatinine 0.5. TSH 1.0. Microbiology with 2 different samples with Pseudomonas aeruginosa, which is a quite susceptible phenotype except for Zosyn. Acid fast first sample with negative sputum smear for AFB organisms. Two sets of blood cultures no growth from 01/05/2017. ASSESSMENT: 1. Chronic obstructive pulmonary disease with emphysematous changes. 2. Cavitary pneumonia, left upper lobe with improvement under broad spectrum antimicrobial coverage. 3. Pseudomonas aeruginosa retrieved from sputum with adequate samples. DISCUSSION: The differential diagnosis includes cavitary pneumonia secondary to Pseudomonas aeruginosa versus an alternate organism including the possibility of anaerobes since the patient still has periodontal naun. Recommend continuation of cefepime plus Flagyl orally or oral clindamycin, probably use Flagyl to decrease the risk of C. diff. Treat for approximately 10 -14 days. The possibility of Mycobacterium tuberculosis infection is less in view of the negative first sputum smear. Typically cavitary Mycobacterium tuberculosis associated pneumonia is characterized by high numbers of bacilli and typically smear positive. MTDD
[2017-01-16] MEDS: Sodium Chloride 0.9% 1,000 ML IV SCH (00:17)
[2017-01-16] MEDS: Cefepime 1 GM, Admixture Fee 1 EACH in Sterile Water 10 ML SLOW IVP SCH (02:10)
[2017-01-16] MEDS: Levothyroxine Sodium 150 MCG TAB PO SCH (05:32)
[2017-01-16 05:46] LABS: Anion Gap 15 mmol/L (10-20); BUN (Urea Nitrogen) 12 mg/dL (9.8-20.1); Calc. Creatinine Clearance 64 mL/min (70-130); Calcium 8.4 mg/dL (7.8-10.44); Carbon Dioxide 33 mmol/L (23-31); Chloride 92 mmol/L (98-107); Estimated GFR-MDRD Greater than 90; Magnesium 1.9 mg/dL (1.6-2.6); Phosphorus 2.2 mg/dL (2.3-4.7)
[2017-01-16 06:30] LABS: Band 1 % (5-11); Hematocrit 37.2 % (36.0-47.0); Neutrophil 89 % (42-75); Red Blood Cell (RBC) Count 3.79 mill/uL (4.20-5.40); White Blood Cell (WBC) Count 21.6 thou/uL (4.8-10.8)
[2017-01-16] MEDS ORDERED: ADMIXTURE FEE SLOW IVP SCH (07:00)
[2017-01-16] MEDS ORDERED: CEFEPIME SLOW IVP SCH (07:00)
[2017-01-16] MEDS ORDERED: STERILE WATER SLOW IVP SCH (07:00)
[2017-01-16] MEDS: predniSONE 20 MG TAB PO SCH (08:01)
[2017-01-16] MEDS: Docusate 100 MG CAP PO SCH (08:05)
[2017-01-16] MEDS: Timolol 0.5% Ophth Soln 5 ml Bottle EA EYE SCH (08:06)
[2017-01-16] MEDS: Famotidine 20 MG TAB PO SCH (08:06)
[2017-01-16] MEDS: Pregabalin 75 MG CAP PO SCH (08:07)
[2017-01-16] MEDS: Saccharomyces boulardii 250 MG CAP PO SCH (08:07)
[2017-01-16] MEDS: guaiFENesin ER 600 MG TAB PO SCH (08:10)
[2017-01-16] MEDS: Acetaminophen 325 MG TAB PO PRN (08:11)
[2017-01-16] MEDS: Enoxaparin Sodium 30 MG/0.3 ML SYRINGE SC SCH (08:12)
--- NOTE | 2017-01-16 10:52 | PDOC.PN ---
- Subjective Encounter Start Date: 01/16/17 Encounter Start Time: 09:00 Patient seen and examined. No new complaints. No overnight events - Objective Resuscitation Status: Resuscitation Status FULL:Full Resuscitation MAR Reviewed: Yes Vital Signs & Weight: Vital Signs (12 hours) Temp Pulse Resp BP Pulse Ox 01/16/17 08:06 113 H 01/16/17 07:38 95 01/16/17 07:36 111 H 20 95 01/16/17 07:35 98.1 F 111 H 20 153/76 H 95 01/16/17 00:43 94 16 99 Weight Admit Weight 98 lb 8 oz Weight 97 lb 3.568 oz Most Recent Monitor Data Heart Rate from ECG 96 NIBP 149/81 NIBP BP-Mean 110 Respiration from ECG 24 SpO2 100 I&O: 01/15/17 01/16/17 01/17/17 06:59 06:59 06:59 Intake Total 1360 1571 Output Total 6 Balance 1354 1571 Result Diagrams: 01/16/17 05:18 01/16/17 05:18 Phys Exam - Physical Examination Constitutional: NAD HEENT: PERRLA, moist MMs, sclera anicteric Neck: no JVD, supple Respiratory: no wheezing, no rales, no rhonchi Cardiovascular: RRR, no significant murmur, no rub Gastrointestinal: soft, non-tender, no distention, positive bowel sounds Musculoskeletal: no edema, pulses present Neurological: non-focal, normal sensation Lymphatic: no nodes Psychiatric: normal affect Skin: no rash, normal turgor Dx/Plan (1) Acute on chronic respiratory failure with hypoxia Code(s): J96.21 - ACUTE AND CHRONIC RESPIRATORY FAILURE WITH HYPOXIA Status: Acute (2) COPD exacerbation Code(s): J44.1 - CHRONIC OBSTRUCTIVE PULMONARY DISEASE W (ACUTE) EXACERBATION Status: Acute (3) Community acquired bacterial pneumonia Code(s): J15.9 - UNSPECIFIED BACTERIAL PNEUMONIA Status: Acute (4) Sepsis with acute organ dysfunction Code(s): A41.9 - SEPSIS, UNSPECIFIED ORGANISM; R65.20 - SEVERE SEPSIS WITHOUT SEPTIC SHOCK Status: Acute (5) Anemia, normocytic normochromic Code(s): D64.9 - ANEMIA, UNSPECIFIED Status: Chronic (6) GERD (gastroesophageal reflux disease) Code(s): K21.9 - GASTRO-ESOPHAGEAL REFLUX DISEASE WITHOUT ESOPHAGITIS Status: Chronic (7) Glaucoma Code(s): H40.9 - UNSPECIFIED GLAUCOMA Status: Chronic (8) Hypothyroidism Code(s): E03.9 - HYPOTHYROIDISM, UNSPECIFIED Status: Chronic (9) PVD (peripheral vascular disease) Code(s): I73.9 - PERIPHERAL VASCULAR DISEASE, UNSPECIFIED Status: Chronic (10) Peripheral neuropathy Code(s): G62.9 - POLYNEUROPATHY, UNSPECIFIED Status: Chronic (11) Protein-calorie malnutrition, moderate Code(s): E44.0 - MODERATE PROTEIN-CALORIE MALNUTRITION Status: Chronic - Plan cont current plan of care, continue antibiotics, rn social services * today picc line * will arrange iv antibiotics * home health * then discharge later today * continue selected home meds * medication reviewed as below * symptomatic treatment. Review of Systems - Review of Systems ENT: negative: Ear Pain, Ear Discharge, Nose Pain, Nose Discharge, Nose Congestion, Mouth Pain, Mouth Swelling, Throat Pain, Throat Swelling, Other Respiratory: negative: Cough, Dry, Shortness of Breath, Hemoptysis, SOB with Excertion, Pleuritic Pain, Sputum, Wheezing Cardiovascular: negative: Chest Pain, Palpitations, Orthopnea, Paroxysmal Noc. Dyspnea, Edema, Light Headedness, Other Gastrointestinal: negative: Nausea, Vomiting, Abdominal Pain, Diarrhea, Constipation, Melena, Hematochezia, Other Genitourinary: negative: Dysuria, Frequency, Incontinence, Hematuria, Retention , Other Musculoskeletal: negative: Neck Pain, Shoulder Pain, Arm Pain, Back Pain, Hand Pain, Leg Pain, Foot Pain, Other Skin: negative: Rash, Lesions, Yury, Bruising, Other - Medications/Allergies Allergies/Adverse Reactions: Allergies Allergy/AdvReac Type Severity Reaction Status Date / Time Sulfa (Sulfonamide Allergy Severe Rash Verified 01/09/17 01:23 Antibiotics) codeine Allergy Verified 09/23/15 07:14 levofloxacin [From Levaquin] Allergy Verified 01/08/17 23:42 Medications: Current Medications Acetaminophen (Tylenol) 650 mg PO Q4H PRN PRN Reason: Headache/Fever or Pain Last Admin: 01/16/17 08:11 Dose: 650 mg Al Hydroxide/Mg Hydroxide (Maalox) 15 ml PO Q4H PRN PRN Reason: Heartburn or Indigestion Albuterol Sulfate (Ventolin) 2.5 mg NEB [id number] PRN PRN Reason: Wheezing Albuterol/Ipratropium (Duoneb) 3 ml NEB [id number] [facility] Last Admin: 01/16/17 07:36 Dose: 3 ml Artificial Tears (Tears Renewed 15ml Bottle) 0 drop EA EYE PRN PRN PRN Reason: Dry Eyes Bisacodyl (Dulcolax) 10 mg PO DAILYPRN PRN PRN Reason: Constipation Last Admin: 01/10/17 20:16 Dose: 10 mg Cyclobenzaprine HCl (Flexeril) 5 mg PO Q8H PRN PRN Reason: Muscle Spasm Last Admin: 01/14/17 08:22 Dose: 5 mg Diazepam (Valium) 5 mg PO BID PRN PRN Reason: Anxiety Last Admin: 01/15/17 08:30 Dose: 5 mg Docusate Sodium (Colace) 100 mg PO BID [facility] Last Admin: 01/16/17 08:05 Dose: Not Given Enoxaparin Sodium (Lovenox) 30 mg SC 0900 [facility] Last Admin: 01/16/17 08:12 Dose: 30 mg Famotidine (Pepcid) 20 mg PO BID [facility] Last Admin: 01/16/17 08:06 Dose: 20 mg Guaifenesin (Mucinex) 1,200 mg PO Q12HR [facility] Last Admin: 01/16/17 08:10 Dose: 1,200 mg Guaifenesin (Robitussin Sf) 200 mg PO Q4H PRN PRN Reason: Cough Hydralazine HCl (Apresoline) 10 mg SLOW IVP Q4H PRN PRN Reason: Systolic BP > 180 Last Admin: 01/13/17 20:42 Dose: 10 mg Sodium Chloride (Normal Saline 0.9%) 1,000 mls @ 0 mls/hr IV .Q0M [facility] PRN Reason: KVO Last Admin: 01/16/17 00:17 Dose: 1,000 mls Cefepime HCl 2 gm/Miscellaneous Medication 1 each/ Sterile Water 10 mls @ 120 mls/hr SLOW IVP 0700,1900 [facility] Levothyroxine Sodium (Synthroid) 150 mcg PO 0600 [facility] Last Admin: 01/16/17 05:32 Dose: 150 mcg Loperamide HCl (Imodium) 2 mg PO PRN PRN PRN Reason: Diarrhea/Loose Stools Loratadine (Claritin) 10 mg PO DAILYPRN PRN PRN Reason: Sinus Symptoms Magnesium Hydroxide (Milk Of Magnesium) 30 ml PO DAILYPRN PRN PRN Reason: Constipation Mineral Oil/White Petrolatum (Eucerin Cream) 0 gm TOP BIDPRN PRN PRN Reason: Dry Skin Ondansetron HCl (Zofran Odt) 4 mg PO Q6H PRN PRN Reason: Nausea/Vomiting Ondansetron HCl (Zofran) 4 mg IVP Q6H PRN PRN Reason: Nausea/Vomiting Pantoprazole Sodium (Protonix) 40 mg PO DAILY [facility] Last Admin: 01/16/17 08:10 Dose: 40 mg Albuterol (Proair) (Hfa 8.5 Gm) 0 each INH TID [facility] Last Admin: 01/15/17 20:03 Dose: 1 each Fluticasone/Salmeterol (Advair) 250/50 Mcg 0 each INH BID [facility] Last Admin: 01/15/17 20:03 Dose: 1 each Phenol (Chloraseptic [place] 180 Ml Bot) 0 ml PO PRN PRN PRN Reason: Sore Throat Prednisone (Prednisone) 40 mg PO QAM-WM [facility] Last Admin: 01/16/17 08:01 Dose: 40 mg Pregabalin (Lyrica) 75 mg PO BID [facility] Last Admin: 01/16/17 08:07 Dose: 75 mg Saccharomyces Boulardii (Florastor) 250 mg PO DAILY [facility] Last Admin: 01/16/17 08:07 Dose: 250 mg Sodium Chloride (Flush - Normal Saline) 10 ml IVF Q12HR [facility] Last Admin: 01/16/17 08:15 Dose: 10 ml Sodium Chloride (Flush - Normal Saline) 10 ml IVF PRN PRN PRN Reason: Saline Flush Last Admin: 01/08/17 23:40 Dose: 10 ml Sodium Chloride ([place] Nasal [place] 0.65%) 0 ml EA NARE QIDPRN PRN PRN Reason: Nasal Congestion Temazepam (Restoril) 15 mg PO HSPRN PRN PRN Reason: Insomnia Timolol Maleate (Timoptic 0.5% Ophth Soln) 1 drop EA EYE DAILY [facility] Last Admin: 01/16/17 08:06 Dose: 1 drp
[2017-01-16] MEDS: ALBUTEROL INH SCH (10:55)
[2017-01-16] MEDS: SALMETEROL INH SCH (10:56)
[2017-01-16] MEDS: FLUTICASONE INH SCH (10:56)
--- NOTE | 2017-01-16 11:05 | SPC ---
LEFT UPPER EXTREMITY PICC LINE: Date: 01-16-17 History: Pneumonia. Need for long-term IV antibiotics. Technique: After informed consent was obtained, patient was placed on the angiography table in supine position. Left upper extremity was meticulously prepped and draped in the usual sterile fashion. An appropriate access site was determined with ultrasound guidance. Skin and subcutaneous tissues were infiltrated with buffered 1% Lidocaine for local anesthesia at the intended puncture site. The left basilic vein was accessed utilizing micropuncture technique and con current real-time ultrasound guidance. 5 [place] peel-away sheath was placed. The catheter was measured and cut to the appropriate length. The catheter as placed over the guidewir e with the tip positioned overlying the distal SVC. Guidewire and peel-away sheath were removed. The catheter was accessed and aspirated/flushed easily. Dry sterile dressing was placed. Patient tolerate d the procedure well without immediate complication. Fluoroscopy: Total fluoroscopy time 0 minutes with total dose of 95 mGy*cm^2. FINDINGS: Technically successful placement a single lumen 5 [place] 38.5 cm PICC line via the left basilic vein. Tip of the catheter overlies the cavoatrial junction. IMPRESSION: Technically successful right upper extremity PICC line placement. POS: [facility]
--- NOTE | 2017-01-16 13:59 | DIS ---
PRIMARY CARE PHYSICIAN: Dr. Lali Swanson. DATE OF ADMISSION: 01/08/2017 DATE OF DISCHARGE: 01/16/2017 DISCHARGE DISPOSITION: Home with home health with outpatient IV antibiotic therapy. PRIMARY DISCHARGE DIAGNOSES: 1. Acute on chronic respiratory failure with hypoxia. 2. Pseudomonas pneumonia. 3. Chronic obstructive pulmonary disease exacerbation. 4. Hypokalemia. 5. Sepsis with acute organ dysfunction. SECONDARY DISCHARGE DIAGNOSES: Peripheral vascular disease, moderate protein calorie malnutrition, p eripheral neuropathy, hypothyroidism, glaucoma, gastroesophageal reflux disease, normocytic normochro masha anemia, chronic obstructive pulmonary disease, and chronic respiratory failure on home oxygen. PRIMARY PROCEDURE/OPERATION: PICC line was placed today on 01/16/2017. RADIOLOGICAL INVESTIGATION: Chest x-ray showed worsening of infiltration in the upper lobes. SIGNIFICANT LABS: WBC 21.6, hemoglobin 11.9, platelets 324. Sodium 136, potassium 4.0, BUN 12, crea tinine 0.50, calcium 8.4, phosphorus 2.2, magnesium 1.9. Liver enzymes normal. TSH 1.03. Respiratory culture grew Pseudomonas. Acid fast bacilli negative. C. diff negative. DISCHARGE MEDICATIONS: The patient will have cefepime 2 gram IV twice daily until 02/01/2017. The p atient will have weekly CBC, CMP, CRP. The patient will follow up with Dr. Poole and Dr. Blanchard aft er discharge. Continue following medication, 1. Albuterol sulfate 2 puffs inhalation t.i.d. p.r.n. 2. Nexium 40 mg p.o. daily. 3. Advair Diskus 250 inhalation b.i.d. 4. Mucinex 600 mg twice daily. 5. DuoNeb q. 6 hourly. 6. Lyrica 75 mg p.o. b.i.d. 7. Florastor 250 mg p.o. daily. 8. Timolol ophthalmic drops daily. CONTRAINDICATIONS: None. CODE STATUS: FULL CODE. INPATIENT CONSULTANTS: Dr. Blanchard and Dr. Jansen was following while in hospital. Dr. Poole was c onsulted for IV antibiotic therapy. ALLERGIES: SULFA DRUGS, CODEINE, and LEVAQUIN. DISCHARGE PLAN: Post hospital, the patient is discharged home with home health. Subsequently, the p atient will follow up with primary care physician and Dr. Blanchard as instructed. HOSPITAL COURSE: A 81-year-old female with above-mentioned medical problem, who was admitted by Dr. Saul Sanches. Please see his H&P for further details. The patient was admitted for increasing shortnes s of breath, cough. The patient was found with pneumonia. The patient had leukocytosis, hyponatremi a. 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 The patient was req uiring long-term antibiotic therapy. Initially, she was given vancomycin and Zosyn. Subsequently, Z osyn was discontinued and vancomycin was discontinued. The patient did developed allergic reaction w ith Levaquin while in hospital and that was medication discontinued. Subsequently, based on culture and sensitivity result, we changed to cefepime. The patient was impro ving with that medication, but Dr. Blanchard was thinking that because of her pneumonia. She will need longer antibiotic therapy and that is why we consulted Dr. Poole. Dr. Poole also agreed with long-t erm IV antibiotic therapy with cefepime until 02/01/2017. After IV antibiotic therapy, the patient w ill follow with Dr. Blanchard for repeat imaging. At this point, the patient is medically stable for discharge. The patient does not want to go to any kind of placement and she selected Home Health for IV antibiotic therapy. With help of rifle case repairer , we arranged outpatient IV antibiotic therapy. The patient also had a PICC line placed today. Discharge medication reconciliation done. The patient is medically stable for discharge today. The patient is seen and examined at bedside today. Please see my progress note for further details. Total time spent on discharge day 31 minutes.
[2017-01-16 14:23] VITALS: BP 168/91; TEMP 97.6
--- NOTE | 2017-01-16 16:10 | PRG ---
DATE OF SERVICE: 01/16/2017 SERVICE: Pulmonary Medicine. INTERVAL HISTORY: The patient is doing great from a respiratory standpoint. She continues to make i mprovement. She denies any current fevers, chills, nausea, vomiting or chest discomfort. Otherwise, there has been no interval change to her condition. She is going to be going on cefepime. She will require this antibiotic for an extended duration. A PICC line was placed today. She has no other e vents. PHYSICAL EXAMINATION: VITAL SIGNS: Afebrile, pulse 105, blood pressure 143/76, respirations 22, saturation 96% on 3 liters nasal cannula. GENERAL: The patient is awake, alert, in no apparent distress. LUNGS: Decent air entry with no prolonged expiratory phase, wheezing, rhonchi or crackles. HEART: Normal rate, regular. ABDOMEN: Soft, nontender, nondistended. Bowel sounds positive. MUSCULOSKELETAL: No cyanosis or clubbing. No pitting in the bilateral lower extremities. NEUROLOGIC: Grossly nonfocal. LABORATORY DATA: WBC is downtrending to 21.6, hemoglobin 11.9, platelets 324,000. Basic metabolic p rofile is essentially unremarkable. Microbiology is growing Pseudomonas aeruginosa in the respirator y sample. It is sensitive to fourth generation cephalosporin. C. diff antigen and toxin is negative . ASSESSMENT: 1. Acute on chronic hypoxic respiratory failure, resolved to baseline. 2. Community-acquired pneumonia/bullitis, secondary to Pseudomonas aeruginosa. 3. Chronic obstructive pulmonary disease with acute exacerbation. PLAN: The patient is doing fantastic from a respiratory standpoint. She will go out of the hospital with an extended course of cefepime. I would like to see her [facility]. My intention is to continue our IV antibiotics until we have radio graphic clearance of her infiltrate. Certainly if things get worse, bronchoscopy may need to be cons idered, but the patient clinically and laboratory reece is improving on a day by day basis.
== END 2017-01-16 15:00 | disposition home health service (06) | DRG 871 ==
LOC: CCU 17:23 → T4-B 01-09 17:47
PROVIDERS: ADMIT Internal Medicine; ATTEND Internal Medicine
PROC: 02HV33Z Insertion of Infusion Device into Superior Vena Cava, Percutaneous Approach (ICD-10-PCS; principal; 2017-01-16)
PROC: B548ZZA Ultrasonography of Superior Vena Cava, Guidance (ICD-10-PCS; 2017-01-16)
DX: A41.9 Sepsis, unspecified organism (principal); J15.1 Pneumonia due to Pseudomonas; J96.21 Acute and chronic respiratory failure with hypoxia; E22.2 Syndrome of inappropriate secretion of antidiuretic hormone; E44.0 Moderate protein-calorie malnutrition; D64.9 Anemia, unspecified; G62.9 Polyneuropathy, unspecified; Z99.81 Dependence on supplemental oxygen; Z68.1 Body mass index [BMI] 19.9 or less, adult; R65.20 Severe sepsis without septic shock; J43.9 Emphysema, unspecified; E87.6 Hypokalemia; J98.4 Other disorders of lung; E03.9 Hypothyroidism, unspecified; K21.9 Gastro-esophageal reflux disease without esophagitis; H40.9 Unspecified glaucoma; I73.9 Peripheral vascular disease, unspecified; T78.40XA Allergy, unspecified, initial encounter; T37.8X5A Adverse effect of other specified systemic anti-infectives and antiparasitics, initial encounter; Z87.891 Personal history of nicotine dependence
CPT/HCPCS: 36415; 36569; 71010; 71020; 80048; 80053; 83735; 84100; 84443; 85025; 87070; 87077; 87116; 87186; 87205; 87206; 87324; 87449; 94640; A4216; C1751; G8978-GP-CM; G8979-GP-CI; G8987-GO-CL; G8988-GO-CJ; G8996-GN-CI; G8997-GN-CI; J0360; J0692; J1160; J1644; J1650; J1940; J1956; J2543; J2920; J7050; J7506; J7620; S0028

== ENCOUNTER 2017-01-30 10:41 | Outpatient (CLI) | payer MEDICARE, OTHER ==
--- NOTE | 2017-01-30 12:50 | RAD ---
CHEST PA AND LATERAL: History: 81-year-old female with dyspnea. Comparison: 01-15-17 FINDINGS: There is a left PICC line in place. There appears to be some progressive opacity changes in the left upper lobe and some progressive volume loss. Stable scarring in the right upper chest and in both bas es and stable bilateral hyperinflation. Some of the previously noted distinct airfluid levels seen on the prior study are less well demonstrated on this study. IMPRESSION: Progressive pleural and parenchymal opacity changes in the left upper lobe with some associated worse lindsey volume loss. Stable right chest and left mid and lower lungs. POS: H
== END 2017-01-30 10:42 | disposition home or self-care (01) ==
LOC: RAD 10:41
PROVIDERS: ATTEND Internal Medicine
DX: R06.00 Dyspnea, unspecified (principal); R91.8 Other nonspecific abnormal finding of lung field
CPT/HCPCS: 71020

== ENCOUNTER 2017-02-20 12:50 | Outpatient (CLI) | payer MEDICARE, OTHER ==
--- NOTE | 2017-02-20 13:45 | RAD ---
PA AND LATERAL CHEST: History: Dyspnea. Comparison: 01-30-17 FINDINGS: Left sided PICC line remains in place. The pleural and parenchymal changes in the left upper lobe are stable. COPD type changes are unchanged since the prior exam. IMPRESSION: Stable chest. POS: MARVIN
== END 2017-02-20 12:51 | disposition home or self-care (01) ==
LOC: RAD 12:50
PROVIDERS: ATTEND Internal Medicine
DX: R06.00 Dyspnea, unspecified (principal)
CPT/HCPCS: 71046